=== PATIENT | male | born 1945 | race Caucasian/White ===

== ENCOUNTER → 2016-12-25 | Outpatient (REF) | payer MEDICARE, MEDICAID ==
[2016-12-25 11:32] LABS: ANION GAP 11 MEQ/L (8-16); BLOOD UREA NITROGEN 12 MG/DL (7-18); CALCIUM LEVEL 9.2 MG/DL (8.8-10.2); CARBON DIOXIDE LEVEL 30 MEQ/L (21-32); CHLORIDE LEVEL 104 MEQ/L (98-107); CHOLESTEROL LEVEL 189 MG/DL (<200); GLOMERULAR FILTRATION RATE > 60.0 (>42); GLUCOSE, FASTING 115 MG/DL (83-110); SODIUM LEVEL 145 MEQ/L (136-145); TRIGLYCERIDES LEVEL 112 MG/DL (<150)
== END ==
LOC: M SFHCCLAY 07:32
PROVIDERS: ATTEND Family Medicine
DX: I10 Essential (primary) hypertension (principal); E78.00 Pure hypercholesterolemia, unspecified

== ENCOUNTER → 2018-01-15 | Outpatient (REF) | payer MEDICARE, MEDICAID ==
[2018-01-15 17:29] LABS: ALBUMIN 3.5 GM/DL (3.2-5.2); ALBUMIN/GLOBULIN RATIO 0.97 (1.00-1.93); ALKALINE PHOSPHATASE 65 U/L (45-117); ALT/SGPT 15 U/L (12-78); ANION GAP 7 MEQ/L (8-16); AST/SGOT 12 U/L (7-37); BILIRUBIN,TOTAL 0.5 MG/DL (0.2-1.0); BLOOD UREA NITROGEN 19 MG/DL (7-18); CARBON DIOXIDE LEVEL 32 MEQ/L (21-32); CHLORIDE LEVEL 103 MEQ/L (98-107); CHOLESTEROL LEVEL 178 MG/DL (<200); CHOLESTEROL RISK RATIO 3.869 (<5); CREATININE FOR GFR 1.01 MG/DL (0.70-1.30); GLOMERULAR FILTRATION RATE > 60.0 (>42); GLUCOSE, FASTING 107 MG/DL (70-100); HDL CHOLESTEROL 46 MG/DL (>40); LDL CHOLESTEROL 105.4 MG/DL (<100); NON-HDL-C 132 MG/DL; POTASSIUM SERUM 4.5 MEQ/L (3.5-5.1); SODIUM LEVEL 142 MEQ/L (136-145); TOTAL PROTEIN 7.1 GM/DL (6.4-8.2); TRIGLYCERIDES LEVEL 133 MG/DL (<150)
== END ==
LOC: M SFHCCLAY 10:08
DX: E78.00 Pure hypercholesterolemia, unspecified (principal); I10 Essential (primary) hypertension
CPT/HCPCS: 80053

== ENCOUNTER → 2018-08-19 | Outpatient (REF) | payer MEDICARE, MEDICAID ==
[2018-08-19 11:56] LABS: HEMATOCRIT 44.6 % (42.0-52.0); HEMOGLOBIN 14.3 g/dl (13.5-17.5); MEAN CORPUSCULAR HGB CONC 32.1 g/dl (32.0-36.5); MEAN CORPUSCULAR VOLUME 90.5 fl (80.0-96.0); PLATELET COUNT, AUTOMATED 373 10^3/uL (150-450); RED BLOOD COUNT 4.93 10^6/uL (4.30-6.10); RED CELL DISTRIBUTION WIDTH 13.3 % (11.5-14.5); WHITE BLOOD COUNT 6.9 10^3/uL (4.0-10.0)
[2018-08-19 12:20] LABS: ALBUMIN 3.1 GM/DL (3.2-5.2); ALBUMIN/GLOBULIN RATIO 0.86 (1.00-1.93); ALKALINE PHOSPHATASE 67 U/L (45-117); ALT/SGPT 14 U/L (12-78); ANION GAP 9 MEQ/L (8-16); AST/SGOT 13 U/L (7-37); BILIRUBIN,TOTAL 0.8 MG/DL (0.2-1.0); BLOOD UREA NITROGEN 12 MG/DL (7-18); CALCIUM LEVEL 8.5 MG/DL (8.8-10.2); CARBON DIOXIDE LEVEL 29 MEQ/L (21-32); CHLORIDE LEVEL 105 MEQ/L (98-107); CREATININE FOR GFR 1.08 MG/DL (0.70-1.30); GLOMERULAR FILTRATION RATE > 60.0 (>42); GLUCOSE, FASTING 106 MG/DL (70-100); POTASSIUM SERUM 4.1 MEQ/L (3.5-5.1); SODIUM LEVEL 143 MEQ/L (136-145); TOTAL PROTEIN 6.7 GM/DL (6.4-8.2)
[2018-08-19 12:47] LABS: ESTIMATED AVERAGE GLUCOSE 137 MG/DL (60-110); HEMOGLOBIN A1c 6.4 %
== END ==
LOC: M SFHCCLAY 07:58
DX: I48.1 Persistent atrial fibrillation (principal); I10 Essential (primary) hypertension; G47.33 Obstructive sleep apnea (adult) (pediatric)
CPT/HCPCS: 84443

== ENCOUNTER → 2018-10-14 | Outpatient (REF) | payer MEDICARE, MEDICAID ==
[2018-10-14 17:40] LABS: ANION GAP 6 MEQ/L (8-16); BLOOD UREA NITROGEN 22 MG/DL (7-18); CARBON DIOXIDE LEVEL 34 MEQ/L (21-32); CHLORIDE LEVEL 97 MEQ/L (98-107); CREATININE FOR GFR 1.05 MG/DL (0.70-1.30); GLOMERULAR FILTRATION RATE > 60.0 (>42); GLUCOSE, FASTING 83 MG/DL (70-100); POTASSIUM SERUM 4.5 MEQ/L (3.5-5.1); SODIUM LEVEL 137 MEQ/L (136-145)
== END ==
LOC: M LABDRAWC 16:23
DX: I48.91 Unspecified atrial fibrillation (principal); I10 Essential (primary) hypertension
CPT/HCPCS: 84443

== ENCOUNTER 2018-11-24 06:23 | Day surgery (SDC) | payer MEDICAID, MEDICARE ==
[~2018-11-24] VITALS: Ht 182.9 cm; Wt 122.5 kg
[~2018-11-24 06:23] MED LIST: AMIO200T PO; COMB0.2S OU; ELIQ5TAB PO; LIDOCAINE 1% MDV 20ML VIAL SQ PRN; METO25TA4 PO; OMEP20CA3 PO; POTA10TA16 PO; PRAV20TA2 PO; SYMB16INH INH; TORS20TA2 PO; TYLETAB14 PO; VITA500T3 PO; XALA0.007 OU
[2018-11-24] MEDS ORDERED: LR 1,000 ML IV ONE (07:00)
[2018-11-24] MEDS ORDERED: LIDOCAINE 2% INJ 100 MG/5 ML SDV (FOR ANES.) As Ordered ONE (07:45)
[2018-11-24] MEDS ORDERED: PROPOFOL 200 MG/20 ML VIAL As Ordered ONE (07:45)
[2018-11-24 08:40] VITALS: BP 126/67
--- NOTE | 2018-11-24 12:27 | RO ---
DATE OF PROCEDURE: 11/24/2018 PREOPERATIVE DIAGNOSIS: Persistent atrial fibrillation. POSTOPERATIVE DIAGNOSIS: Persistent atrial fibrillation. PROCEDURE: Cardioversion. SURGEON: Mini Lombardo MD TRANSIT PLANNER: None ANESTHESIA: Bridget Coe CRNA BRIEF HISTORY: Mr. Siddiqui is a 73-year-old man, who has had persistent atrial fibrillation that is poorly tolerated on outpatient basis. He has been anticoagulated for more than 2 months. He also has been started on amiodarone, currently taking 400 mg daily. Because it failed to restore sinus mechanism, we decided to proceed with DC cardioversion. The rationale for the decision was discussed with the patient on outpatient basis and he did sign appropriate consent. Procedure was performed in recovery room. DESCRIPTION OF PROCEDURE: The patient was brought to recovery room in fasting condition. Appropriate monitors were applied. Time-out was taken. Anesthesiology administered sedation. He received approximately 100 mg of IV propofol. When appropriate level of sedation was accomplished, he received initial shock of 200 joules of energy in biphasic fashion with defibrillation patches applied in anterior position. It failed to restore sinus mechanism. Consequently, a second shock was delivered with 300 joules of energy again in biphasic mode, which again failed to restore sinus mechanism. Finally, I proceeded with maximum 360 joules of energy applied in biphasic fashion, which led to spiritism of sinus mechanism. 12-lead ECG performed and confirmed resumption of sinus rhythm. Currently, patient is recovering from sedation. Overall, the procedure was well tolerated and there were no immediate complications. Followup will be arranged in our office next week. I stressed to the patient's family that it is essentially important that he continues taking all his medications, most importantly the Eliquis. JAYY
--- NOTE | 2018-11-25 16:58 | ECGEPIP ---
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
--- NOTE | 2018-11-25 17:05 | ECGEPIP ---
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
== END 2018-11-24 09:05 | disposition home or self-care (01) ==
LOC: M SDC 06:23
PROVIDERS: ATTEND Internal Medicine Cardiovascular Disease
DX: I48.1 Persistent atrial fibrillation (principal); I10 Essential (primary) hypertension; E78.5 Hyperlipidemia, unspecified; G47.33 Obstructive sleep apnea (adult) (pediatric); E66.01 Morbid (severe) obesity due to excess calories; H40.9 Unspecified glaucoma; R07.9 Chest pain, unspecified; E78.00 Pure hypercholesterolemia, unspecified; K21.9 Gastro-esophageal reflux disease without esophagitis; R06.02 Shortness of breath; M12.9 Arthropathy, unspecified; R51 Headache; Z88.0 Allergy status to penicillin; Z88.1 Allergy status to other antibiotic agents; Z79.899 Other long term (current) drug therapy; Z68.42 Body mass index [BMI] 45.0-49.9, adult; Z96.1 Presence of intraocular lens

== ENCOUNTER → 2019-08-16 | Outpatient (REF) | payer MEDICARE, MEDICAID ==
[~2019-08-16] MED LIST changes: +CYAN500T8 PO; -LIDOCAINE 1% MDV 20ML VIAL SQ PRN; -OMEP20CA3 PO; +OMEP20CA4 PO; -VITA500T3 PO
[2019-08-16 12:22] LABS: ALBUMIN 3.4 GM/DL (3.2-5.2); ALT/SGPT 20 U/L (12-78); BILIRUBIN,TOTAL 0.7 MG/DL (0.2-1.0); BLOOD UREA NITROGEN 15 MG/DL (7-18); CALCIUM LEVEL 8.9 MG/DL (8.8-10.2); CARBON DIOXIDE LEVEL 31 MEQ/L (21-32); CHLORIDE LEVEL 103 MEQ/L (98-107); CHOLESTEROL LEVEL 181 MG/DL (<200); CREATININE FOR GFR 1.14 MG/DL (0.70-1.30); GLOMERULAR FILTRATION RATE > 60.0 (>42); GLUCOSE, FASTING 120 MG/DL (70-100); HDL CHOLESTEROL 52 MG/DL (>40); LDL CHOLESTEROL 104 MG/DL (<100); NON-HDL-C 129 MG/DL; POTASSIUM SERUM 4.1 MEQ/L (3.5-5.1); SODIUM LEVEL 139 MEQ/L (136-145); TOTAL PROTEIN 7.5 GM/DL (6.4-8.2); TRIGLYCERIDES LEVEL 123 MG/DL (<150)
[2019-08-16 12:49] LABS: HEMOGLOBIN A1c 6.1 %
[2019-08-16 17:42] LABS: MAU/CREAT RATIO 7.6 MCG/MG (0.0-30.0)
== END ==
LOC: M SFHCCLAY 07:32
PROVIDERS: ATTEND Family Medicine
DX: I10 Essential (primary) hypertension (principal); E78.00 Pure hypercholesterolemia, unspecified; R73.01 Impaired fasting glucose

== ENCOUNTER → 2020-01-10 | Outpatient (CLI) | payer MEDICARE, MEDICAID ==
[~2020-01-10] MED LIST changes: +OMEP1CAP73 PO; -OMEP20CA4 PO
--- NOTE | 2020-01-10 12:15 | REP ---
Left knee five views: There are no comparisons. There is faintly visible chondrocalcinosis suggestive of CPPD. There is no joint space narrowing. No osteophytic formation. No joint effusion. There are no calcifications or foreign bodies. Impression: Chondrocalcinosis suggestive of CPPD. Otherwise, negative left knee. Electronically Signed by Ryne Johnson MD 01/10/2020 12:06 P
== END ==
LOC: M CLY 10:13
PROVIDERS: ATTEND Family Medicine
DX: M11.262 Other chondrocalcinosis, left knee (principal); M17.12 Unilateral primary osteoarthritis, left knee
CPT/HCPCS: 73564; G0463

== ENCOUNTER 2020-04-20 17:21 | Inpatient (IN) | payer MEDICARE, MEDICAID ==
[~2020-04-20] VITALS: Ht 182.9 cm; Wt 166.8 kg
[2020-04-20] MEDS ORDERED: LOSA50TA88 PO (17:42)
[2020-04-20] MEDS ORDERED: ACETAMINOPH W/CODEINE #3 TAB UD PO ONE (18:15)
[2020-04-20 18:33] LABS: VENOUS BASE EXCESS 7.8 (-2.0-2.0); VENOUS HCO3 36.8 MEQ/L (23.0-27.0); VENOUS O2 SATURATION 58.8 % (60.0-80.0); VENOUS PARTIAL PRESSURE CO2 70.8 mmHg (38.0-50.0); VENOUS PARTIAL PRESSURE O2 32.7 mmHg (30.0-50.0); VENOUS PH 7.334 UNITS (7.330-7.430); VENOUS STANDARD HCO3 30.5 MEQ/L
[2020-04-20 18:39] LABS: BASO # 0.1 10^3/uL (0.0-0.2); EOS # 0.3 10^3/uL (0.0-0.5); EOS % 5.1 % (0.0-3.0); HEMATOCRIT 49.5 % (42.0-52.0); HEMOGLOBIN 15.4 g/dl (13.5-17.5); LYMPH % 32.4 % (24.0-44.0); MEAN CORPUSCULAR HEMOGLOBIN 27.8 pg (27.0-33.0); MEAN CORPUSCULAR HGB CONC 31.1 g/dl (32.0-36.5); MEAN CORPUSCULAR VOLUME 89.4 fl (80.0-96.0); MONO # 0.7 10^3/uL (0.0-0.8); MONO % 11.2 % (0.0-5.0); NEUTROPHILS # 3.1 10^3/uL (1.5-8.5); NEUTROPHILS % 50.1 % (36.0-66.0); PLATELET COUNT, AUTOMATED 355 10^3/uL (150-450); RED BLOOD COUNT 5.54 10^6/uL (4.30-6.10); WHITE BLOOD COUNT 6.2 10^3/uL (4.0-10.0)
[2020-04-20 18:51] LABS: INR 1.17; PROTHROMBIN TIME 14.6 SECONDS (11.8-14.0)
[2020-04-20 19:05] LABS: ALBUMIN 3.3 GM/DL (3.2-5.2); ALT/SGPT 16 U/L (12-78); BILIRUBIN,DIRECT 0.2 MG/DL (0.0-0.2); BILIRUBIN,TOTAL 0.4 MG/DL (0.2-1.0); CK-MB VALUE MASS < 1.0 NG/ML (<3.6); CPK CREATINE PHOSPHOKINASE 49 U/L (39-308); MB/CK RELATIVE INDEX 2.04 (< OR =4); NT-PRO BNP 361 PG/ML (<450); THYROID STIMULATING HORMONE < 0.005 uIU/ML (0.358-3.740); TOTAL PROTEIN 7.4 GM/DL (6.4-8.2); TROPONIN I < 0.02 NG/ML (< 0.10)
[2020-04-20] MEDS: METOPROLOL 5 MG/5 ML VIAL IV SCH ×3 (19:11→22:53)
[2020-04-20 19:27] LABS: FREE THYROXINE INDEX 6.4 % (1.4-3.8); T UPTAKE 37 % (33-40); THYROXINE (T4) 17.3 UG/DL (4.5-12.0)
[2020-04-20] MEDS: SYMBICORT 160/4.5MCG INHALER 6GM INH SCH (20:00)
[2020-04-20 20:54] VITALS: O2SAT 86
[2020-04-20] MEDS ORDERED: FUROSEMIDE 40MG/4ML VIAL (J1940) IV ONE (21:45)
--- NOTE | 2020-04-20 22:30 | HPEPDOC ---
[facility] Medical History & Physical Date of Admission Apr 20, 2020 Date of Service: Apr 20, 2020 Attending Physician: JEROME STORY MD History and Physical CHIEF COMPLAINT: Shortness of breath HISTORY OF PRESENT ILLNESS: 75-year-old male with past medical history of atrial fibrillation on Eliquis, COPD, hypertension and chronic back pain presents from home with worsening shortness of breath for the past 2 days. He denies any precipitating events, denies symptoms at rest, reports dyspnea on exertion, sudden onset and progressively worsening. In the ED, he is found to be in atrial fibrillation with rapid ventricular rate, congestive heart failure and hyperthyroidism. He denies any chest pain, nausea, vomiting, diarrhea or constipation. 10 point review of system is negative except for above PAST MEDICAL HISTORY: 1. COPD. 2. Atrial fibrillation. 3. Hypertension. 4. Chronic back pain PAST SURGICAL HISTORY: 1. Cholecystectomy. SOCIAL HISTORY: Previous heavy smoker. Denies alcohol use. Denies drug use FAMILY HISTORY: Positive for heart disease ALLERGIES: Please see below. HOME MEDICATIONS: Please see below. PHYSICAL EXAMINATION: VITAL SIGNS: Please see below. GENERAL: No distress HEENT: Normocephalic, atraumatic, moist mucous membranes NECK: Supple CARDIOVASCULAR EXAMINATION: S1, S2, irregularly irregular, tachycardic RESPIRATORY EXAMINATION: Scattered rhonchi, poor air movement, diminished in the bases, no wheezing ABDOMINAL EXAMINATION: Soft, nontender, mildly distended, positive bowel sounds EXTREMITIES: Bilateral lower extremity pitting edema SKIN: No rash NEUROLOGICAL EXAMINATION: Alert and oriented 3, no focal deficits PSYCHIATRIC EXAMINATION: Calm and cooperative LABORATORY DATA: See below. IMAGING: Chest x-ray showing pulmonary vascular congestion MICROBIOLOGY: Please see below. ASSESSMENT: 75-year-old male with past medical history of atrial fibrillation, COPD, hypertension and chronic back pain, admitted for congestive heart failure secondary to A. fib with RVR, which has likely been precipitated by hyperthyroidism. PLAN: 1. A. fib with RVR. Likely precipitated by hyperthyroidism, metoprolol for rate control, continue Eliquis for anticoagulation, TTE ordered. 2. Congestive heart failure. Secondary to above, Lasix 40 mg IV 1 followed by home torsemide 20 mg daily, monitor I's and O's, weigh daily. 3. Hyperthyroidism. Undiagnosed, thyroid-stimulating immunoglobulin ordered, consider radioactive iodine uptake in the morning, currently not in thyroid storm. 4. COPD Stable, continue home regimen 5. Hypertension. Continue home metoprolol and losartan DVT prophylaxis: On Eliquis GI prophylaxis: Not needed Vital Signs Vital Signs Date Time Temp Pulse Resp B/P (MAP) Pulse Ox O2 Delivery O2 Flow Rate FiO2 04/20/20 20:54 86 Room Air 04/20/20 19:51 91 20 04/20/20 19:45 94/50 (65) 04/20/20 17:35 98.8 Laboratory Data Labs 24H Laboratory Tests 2 04/20/20 18:17: Immature Granulocyte % (Auto) 0.2, Neutrophils (%) (Auto) 50.1, Lymphocytes (%) (Auto) 32.4, Monocytes (%) (Auto) 11.2H, Eosinophils (%) (Auto) 5.1H, Basophils (%) (Auto) 1.0, Neutrophils # (Auto) 3.1, Lymphocytes # (Auto) 2.0, Monocytes # (Auto) 0.7, Eosinophils # (Auto) 0.3, Basophils # (Auto) 0.1, Nucleated Red Blood Cells % (auto) 0.0, Prothrombin Time 14.6H, Prothromb Time International Ratio 1.17, Blood Gas Bicarbonate Standard 30.5, Venous Blood pH 7.334, Venous Blood Partial Pressure CO2 70.8H, Venous Blood Partial Pressure O2 32.7, Venous Blood Total Carbon Dioxide 39.0H, Venous Blood HCO3 36.8H, Venous Blood Oxygen Saturation 58.8L, Venous Blood Base Excess 7.8H, Total Bilirubin 0.4, Direct Bilirubin 0.2, Aspartate Amino Transf (AST/SGOT) 13, Alanine Aminotransferase (ALT/SGPT) 16, Alkaline Phosphatase 73, Total Creatine Kinase 49, Creatine Kinase MB < 1.0, Creatine Kinase MB Relative Index 2.04, Troponin I < 0.02, TM-Fag-E-Type Natriuretic Peptide 361, Total Protein 7.4, Albumin 3.3, Albumin/Globulin Ratio 0.8, Thyroid Stimulating Hormone (TSH) < 0.005L, Free Thyroxine Index 6.4H, Thyroxine (T4) 17.3H, Triiodothyronine (T3) Uptake 37 04/20/20 18:18: Lactic Acid Level 1.6 04/20/20 18:22: POC Troponin I (Misc) 0.00 04/20/20 18:57: POC Glucose (Misc Panel) 117H, POC Sodium (Misc Panel) 141, POC Potassium (Misc Panel) 4.2, POC Chloride (Misc Panel) 95L, POC Total CO2 (Misc Panel) 35.0H, POC Blood Urea Nitrogen (Misc Panel 19, POC Ionized Calcium (Misc Panel) 4.4L, POC Creatinine (Misc Panel) 1.0, POC Hematocrit (Misc Panel) 55.0H CBC/BMP Laboratory Tests 04/20/20 18:17 Microbiology Microbiology 04/20/20 Blood Culture, Received Pending Home Medications Scheduled Apixaban (Eliquis) 5 Mg Tab, 5 MG PO BID Brimonidine Tartrate/Timolol (Combigan 0.2%-0.5% Eye Drops) 1 Eli Eli, 1 DROP OU BID Budesonide/Formoterol (Symbicort 160-4.5 Mcg Inhaler) 60 Puff/Inhaler Aers, 2 PUFF INH BID Latanoprost (Xalatan) 0.005 % Eli, 1 DROP OU QHS Losartan Potassium (Losartan Potassium) 50 Mg Tablet, 50 MG PO DAILY Metoprolol Tartrate (Metoprolol Tartrate) 25 Mg Tab, 25 MG PO DAILY Omeprazole (Omeprazole) 20 Mg Cap, 20 MG PO DAILY Potassium Chloride (Potassium Chloride) 10 Meq Tab, 10 MEQ PO DAILY Pravastatin Sodium (Pravastatin Sodium) 20 Mg Tab, 20 MG PO DAILY Torsemide (Torsemide) 20 Mg Tab, 20 MG PO DAILY Scheduled PRN Acetaminophen with Codeine (Tylenol with Codeine #3 Tablet) 1 Tab Tab, 1 TAB PO PRN PRN for PAIN Allergies Coded Allergies: Penicillins (Verified Allergy, Unknown, 04/20/20) RASH oxytetracycline (Verified Allergy, Unknown, 04/20/20) RASH A-FIB/CHADSVASC A-FIB History Current/History of A-Fib/PAF?: Yes Current PO Anticoag Therapy: Yes JEROME STORY MD Apr 20, 2020 22:30
[2020-04-20] MEDS: APIXABAN 5 MG TAB (ELIQUIS) PO SCH (23:42)
[2020-04-20] MEDS: METOPROLOL TART 25 MG TABLET PO SCH (23:43)
[2020-04-20] MEDS: LATANOPROST 0.005% OPHTH SOLN 2.5 ML OU SCH (23:43)
[2020-04-21] VITALS: BP 136/97
[2020-04-21 06:21] LABS: HEMATOCRIT 46.4 % (42.0-52.0); HEMOGLOBIN 14.6 g/dl (13.5-17.5); MEAN CORPUSCULAR HGB CONC 31.5 g/dl (32.0-36.5); MEAN CORPUSCULAR VOLUME 89.1 fl (80.0-96.0); PLATELET COUNT, AUTOMATED 336 10^3/uL (150-450); RED BLOOD COUNT 5.21 10^6/uL (4.30-6.10); WHITE BLOOD COUNT 8.2 10^3/uL (4.0-10.0)
[2020-04-21 06:51] LABS: ALBUMIN 3.1 GM/DL (3.2-5.2); ALT/SGPT 14 U/L (12-78); BLOOD UREA NITROGEN 16 MG/DL (7-18); CALCIUM LEVEL 8.8 MG/DL (8.8-10.2); CARBON DIOXIDE LEVEL 35 MEQ/L (21-32); CHLORIDE LEVEL 100 MEQ/L (98-107); CREATININE FOR GFR 0.98 MG/DL (0.70-1.30); GLOMERULAR FILTRATION RATE > 60.0 (>42); GLUCOSE, FASTING 129 MG/DL (70-100); MAGNESIUM LEVEL 1.8 MG/DL (1.8-2.4); POTASSIUM SERUM 4.3 MEQ/L (3.5-5.1); SODIUM LEVEL 138 MEQ/L (136-145); TOTAL PROTEIN 6.8 GM/DL (6.4-8.2)
[2020-04-21 08:00] VITALS: BP 165/96
[2020-04-21] MEDS: SYMBICORT 160/4.5MCG INHALER 6GM INH SCH ×2 (08:16→20:00)
--- NOTE | 2020-04-21 08:20 | REP ---
PORTABLE CHEST X-RAY: SINGLE VIEW. HISTORY: Dyspnea and cough. Comparison chest x-ray: April 03, 2015 FINDINGS: Monitoring electrodes overlie the chest. There is some processing artifact over the diaphragms and heart. Heart size is borderline. The lungs are symmetrically somewhat under aerated but free of infiltrate. Pleural angles are sharp. Pulmonary vasculature is not increased. IMPRESSION: Low level of inspiration. Otherwise no acute disease. No infiltrate seen. Electronically Signed by Sivakumar Riley MD 04/21/2020 08:23 A
[2020-04-21] MEDS: TORSEMIDE 20 MG TAB PO SCH (08:41)
[2020-04-21] MEDS: PRAVASTATIN 20 MG TAB PO SCH (08:41)
[2020-04-21] MEDS: LOSARTAN 50MG TABLET PO SCH (08:41)
[2020-04-21] MEDS: METOPROLOL TART 25 MG TABLET PO SCH ×3 (08:42→17:31)
[2020-04-21] MEDS: OMEPRAZOLE 20 MG CAP PO SCH (08:42)
[2020-04-21] MEDS: APIXABAN 5 MG TAB (ELIQUIS) PO SCH ×2 (08:42→20:30)
[2020-04-21] MEDS: POTASSIUM CHLORIDE 10 MEQ SR TABLET PO SCH (08:42)
[2020-04-21 08:56] LABS: FREE T3 3.8 PG/ML (2.2-4.0)
[2020-04-21 10:21] VITALS: BP 133/79
--- NOTE | 2020-04-21 12:13 | IPNPDOC ---
Text Note Date of Service The patient was seen on 04/21/20. NOTE SUBJECTIVE: Does not offer any complaints this morning. No change yet. Says has not walked yet will be able to tell is any better or not after he walks. He is having exertional SOB. Had 1150 negative overnight. PHYSICAL EXAMINATION: VITAL SIGNS: Please see below. GENERAL: No distress HEENT: Normocephalic, atraumatic, moist mucous membranes NECK: Supple CARDIOVASCULAR EXAMINATION: S1, S2, irregularly irregular, tachycardic RESPIRATORY EXAMINATION: Scattered rhonchi, poor air movement, diminished in the bases, no wheezing ABDOMINAL EXAMINATION: Soft, nontender, mildly distended, positive bowel sounds EXTREMITIES: Bilateral lower extremity pitting edema SKIN: No rash NEUROLOGICAL EXAMINATION: Alert and oriented 3, no focal deficits PSYCHIATRIC EXAMINATION: Calm and cooperative Labs and radiology reviewed. Assessment and plan: 75-year-old male with past medical history of atrial fibrillation on Eliquis, h/o Cardioversion, COPD, hypertension and chronic back pain, glaucoma, retinal tear and hemorrhage, presents from home with worsening shortness of breath for the past 2 days. He denies any precipitating events, denies symptoms at rest, reports dyspnea on exertion, sudden onset and progressively worsening. In the ED, he is found to be in atrial fibrillation with rapid ventricular rate, congestive heart failure and hyperthyroidism. Patient admitted for congestive heart failure secondary to A. fib with RVR, which has likely been precipitated by hyperthyroidism. A. fib with RVR. Likely precipitated by hyperthyroidism, metoprolol for rate control, continue Eliquis for anticoagulation, TTE ordered. Congestive heart failure. Secondary to above, Lasix 40 mg IV 1 followed by home torsemide 20 mg daily, monitor I's and O's, weigh daily. Echo ordered. Hyperthyroidism. Free T3 ordered. Undiagnosed, thyroid-stimulating immunoglobulin ordered Morbid obesity and LIZETTE uses CPAP at home. COPD Stable, continue home regimen symbicort Hypertension. Continue home metoprolol and losartan Hyperlipidemia statin Glaucoma continue eye drops. DVT prophylaxis: On Eliquis VS,Fishbone, I+O VS, Fishbone, I+O Laboratory Tests 04/20/20 18:17 04/21/20 05:35 Vital Signs Date Time Temp Pulse Resp B/P (MAP) Pulse Ox O2 Delivery O2 Flow Rate FiO2 04/21/20 00:00 97.1 92 20 136/97 (110) 96 Nasal Cannula 2.0 I&O- Last 24 Hours up to 6 AM 04/21/20 06:00 Output Total 950 ml Balance -950 ml SUE MEJIAS MD Apr 21, 2020 07:52
[2020-04-21 14:00] VITALS: BP 131/71
[2020-04-21] MEDS: LATANOPROST 0.005% OPHTH SOLN 2.5 ML OU SCH (20:30)
[2020-04-21] MEDS: ACETAMINOPH W/CODEINE #3 TAB UD PO PRN (20:35)
[2020-04-21 22:00] VITALS: BP 122/55
[2020-04-22] MEDS: METOPROLOL TART 25 MG TABLET PO SCH ×4 (01:00→18:12)
[2020-04-22 06:00] VITALS: BP 107/69
[2020-04-22] MEDS: SYMBICORT 160/4.5MCG INHALER 6GM INH SCH ×2 (07:47→18:09)
[2020-04-22] MEDS: APIXABAN 5 MG TAB (ELIQUIS) PO SCH ×2 (08:46→20:14)
[2020-04-22] MEDS: PRAVASTATIN 20 MG TAB PO SCH (08:46)
[2020-04-22] MEDS: POTASSIUM CHLORIDE 10 MEQ SR TABLET PO SCH (08:46)
[2020-04-22] MEDS: OMEPRAZOLE 20 MG CAP PO SCH (08:46)
[2020-04-22] MEDS: TORSEMIDE 20 MG TAB PO SCH (08:47)
[2020-04-22] MEDS: LOSARTAN 50MG TABLET PO SCH (08:50)
[2020-04-22] MEDS: ACETAMINOPH W/CODEINE #3 TAB UD PO PRN ×2 (09:01→20:15)
[2020-04-22 14:00] VITALS: BP 126/71
--- NOTE | 2020-04-22 15:30 | IPNPDOC ---
Text Note Date of Service The patient was seen on 04/22/20. NOTE Subjective: Patient stated that he feels better today, he denied any palpitations. Denies fever, chills, nausea, vomiting, diarrhea or dysuria Objective: VITAL SIGNS: Please see below. GENERAL: Morbidly obese male HEENT: NCAT, anicteric sclera, ANTHONY NECK: supple, no JVD CARDIOVASCULAR EXAMINATION: Irregularly irregular RESPIRATORY EXAMINATION: CTA b/l, no wheezes/rales/rhonchi ABDOMINAL EXAMINATION: positive bowel sounds x 4, NT, diabetes EXTREMITIES: no cyanosis, clubbing, edema SKIN: warm, no rashes. NEUROLOGICAL EXAMINATION: AAO x 3, no motor/sensory deficits PSYCHIATRIC EXAMINATION: calm, normal affect Patient is 75 years old male with past history of atrial fibrillation on Eliquis, history of cardioversion, COPD, hypertension presented hospital with increased shortness of breath. During hospital stay patient was found to have atrial fibrillation with rapid ventricular rate. Also patient was found to have hyperthyroidism Atrial fibrillation Rate is under control Continue metoprolol and Eliquis There is possibility that patient developed rapid ventricular rate secondary to hyperthyroidism Congestive heart failure Echo ordered Continue torsemide I's and O's Cardiac Hyperthyroidism Low TSH, high T4 We'll check anti-thyroperoxidase ab, TSI Patient will need RAUI scan in the outpatient settings COPD Stable, continue home regimen Hypertension. Continue home metoprolol and losartan DVT prophylaxis: On Eliquis GI prophylaxis: Not needed VS,Fishbone, I+O VS, Fishbone, I+O Vital Signs Date Time Temp Pulse Resp B/P (MAP) Pulse Ox O2 Delivery O2 Flow Rate FiO2 04/22/20 14:00 98.6 100 19 126/71 (89) 89 Room Air 04/22/20 09:00 2.0 I&O- Last 24 Hours up to 6 AM 04/22/20 06:00 Intake Total 470 ml Output Total 1325 ml Balance -855 ml PHILIP NEWTON DO Apr 22, 2020 15:30
[2020-04-22 16:46] LABS: NT-PRO BNP 316 PG/ML (<450)
[2020-04-22] MEDS: LATANOPROST 0.005% OPHTH SOLN 2.5 ML OU SCH (20:14)
[2020-04-22 22:00] VITALS: BP 131/73
[2020-04-23] MEDS: METOPROLOL TART 25 MG TABLET PO SCH ×2 (00:09→06:23)
[2020-04-23 05:54] LABS: HEMATOCRIT 45.3 % (42.0-52.0); HEMOGLOBIN 14.1 g/dl (13.5-17.5); MEAN CORPUSCULAR HEMOGLOBIN 27.5 pg (27.0-33.0); MEAN CORPUSCULAR HGB CONC 31.1 g/dl (32.0-36.5); MEAN CORPUSCULAR VOLUME 88.5 fl (80.0-96.0); PLATELET COUNT, AUTOMATED 299 10^3/uL (150-450); RED BLOOD COUNT 5.12 10^6/uL (4.30-6.10); WHITE BLOOD COUNT 6.2 10^3/uL (4.0-10.0)
[2020-04-23 06:00] VITALS: BP 125/69
[2020-04-23 06:19] LABS: BLOOD UREA NITROGEN 22 MG/DL (7-18); CALCIUM LEVEL 8.8 MG/DL (8.8-10.2); CARBON DIOXIDE LEVEL 36 MEQ/L (21-32); CHLORIDE LEVEL 98 MEQ/L (98-107); CREATININE FOR GFR 1.06 MG/DL (0.70-1.30); GLOMERULAR FILTRATION RATE > 60.0 (>42); GLUCOSE, FASTING 116 MG/DL (70-100); MAGNESIUM LEVEL 1.9 MG/DL (1.8-2.4); POTASSIUM SERUM 3.9 MEQ/L (3.5-5.1); SODIUM LEVEL 140 MEQ/L (136-145)
[2020-04-23] MEDS: SYMBICORT 160/4.5MCG INHALER 6GM INH SCH ×2 (07:32→20:00)
[2020-04-23] MEDS: OMEPRAZOLE 20 MG CAP PO SCH (08:58)
[2020-04-23] MEDS: POTASSIUM CHLORIDE 10 MEQ SR TABLET PO SCH (08:58)
[2020-04-23] MEDS: APIXABAN 5 MG TAB (ELIQUIS) PO SCH ×2 (08:58→20:49)
[2020-04-23] MEDS: TORSEMIDE 20 MG TAB PO SCH (08:58)
[2020-04-23] MEDS: PRAVASTATIN 20 MG TAB PO SCH (08:58)
[2020-04-23] MEDS: LOSARTAN 50MG TABLET PO SCH (08:59)
[2020-04-23 09:46] LABS: THYROGLOBULIN ANTIBODY 275.4 U/ML (<60.0); THYROID PEROXIDASE ANTIBODY 41.1 U/ML (<60.0)
[2020-04-23] MEDS ORDERED: PROPRANOLOL 80 MG LA CAP PO SCH (10:00)
--- NOTE | 2020-04-23 13:51 | IPNPDOC ---
Text Note Date of Service The patient was seen on 04/23/20. NOTE SUBJECTIVE: Does not offer any complaints this morning. Says breathing is bet ter. 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 He has been able to work with PT. His blood pressure is on the lower side today. Echo not yet done. PHYSICAL EXAMINATION: VITAL SIGNS: Please see below. GENERAL: No distress HEENT: Normocephalic, atraumatic, moist mucous membranes NECK: Supple CARDIOVASCULAR EXAMINATION: S1, S2, irregularly irregular, tachycardic RESPIRATORY EXAMINATION: Scattered rhonchi, poor air movement, diminished in the bases, no wheezing ABDOMINAL EXAMINATION: Soft, nontender, mildly distended, positive bowel sounds EXTREMITIES: Bilateral lower extremity pitting edema SKIN: No rash NEUROLOGICAL EXAMINATION: Alert and oriented 3, no focal deficits PSYCHIATRIC EXAMINATION: Calm and cooperative Labs and radiology reviewed. Assessment and plan: 75-year-old male with past medical history of atrial fibrillation on Eliquis, h/o Cardioversion, COPD, hypertension and chronic back pain, glaucoma, retinal tear and hemorrhage, presents from home with worsening shortness of breath for the past 2 days. He denies any precipitating events, denies symptoms at rest, reports dyspnea on exertion, sudden onset and progressively worsening. In the ED, he is found to be in atrial fibrillation with rapid ventricular rate, congestive heart failure and hyperthyroidism. Patient admitted for congestive heart failure secondary to A. fib with RVR, which has likely been precipitated by hyperthyroidism. A. fib with RVR. Likely precipitated by hyperthyroidism, continue Eliquis for anticoagulation, TTE ordered. discussed with Dr Lombardo will change metoprolol to long acting propranolol T4 Hyperthyroidism. Free T3 not elevated. Thyroglobulin antibody is elevated, Thyroid peroxidase antibody in normal. will refer to Dr Ros Cody. thyroid-stimulating immunoglobulin ordered Congestive heart failure. Secondary to above, Lasix 40 mg IV 1 followed by home torsemide 20 mg daily, monitor I's and O's, weigh daily. Echo ordered. Morbid obesity and LIZETTE uses CPAP at home. COPD Stable, continue home regimen symbicort Hypertension. Losartan dose reduced as starting on betablocker propranolol. Hyperlipidemia statin Glaucoma continue eye drops. DVT prophylaxis: On Eliquis VS,Fishbone, I+O VS, Fishbone, I+O Laboratory Tests 04/23/20 05:30 Vital Signs Date Time Temp Pulse Resp B/P (MAP) Pulse Ox O2 Delivery O2 Flow Rate FiO2 04/23/20 10:00 85 95/65 04/23/20 06:00 98.1 18 92 Room Air 04/22/20 21:00 2.0 I&O- Last 24 Hours up to 6 AM 04/23/20 06:00 Intake Total 1675 ml Output Total 2500 ml Balance -825 ml SUE MEJIAS MD Apr 23, 2020 13:50
[2020-04-23 14:00] VITALS: BP 151/91
[2020-04-23] MEDS ORDERED: PROP60CA PO (14:43)
[2020-04-23] MEDS ORDERED: METH10TA PO (14:43)
[2020-04-23] MEDS ORDERED: LOSA50TA88 PO (14:43)
--- NOTE | 2020-04-23 15:08 | ECGEPIP ---
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
[2020-04-23] MEDS: PROPRANOLOL 60 MG LA CAP PO SCH (15:20)
[2020-04-23] MEDS: LATANOPROST 0.005% OPHTH SOLN 2.5 ML OU SCH (20:49)
[2020-04-23] MEDS: ACETAMINOPH W/CODEINE #3 TAB UD PO PRN (20:49)
[2020-04-23 22:00] VITALS: BP 130/82
[2020-04-24 05:50] LABS: HEMATOCRIT 44.3 % (42.0-52.0); HEMOGLOBIN 14.2 g/dl (13.5-17.5); MEAN CORPUSCULAR HEMOGLOBIN 28.2 pg (27.0-33.0); MEAN CORPUSCULAR HGB CONC 32.1 g/dl (32.0-36.5); MEAN CORPUSCULAR VOLUME 88.1 fl (80.0-96.0); PLATELET COUNT, AUTOMATED 298 10^3/uL (150-450); RED BLOOD COUNT 5.03 10^6/uL (4.30-6.10)
[2020-04-24 06:00] VITALS: BP 126/79
[2020-04-24 06:18] LABS: BLOOD UREA NITROGEN 25 MG/DL (7-18); CALCIUM LEVEL 8.7 MG/DL (8.8-10.2); CARBON DIOXIDE LEVEL 35 MEQ/L (21-32); CHLORIDE LEVEL 98 MEQ/L (98-107); CREATININE FOR GFR 1.15 MG/DL (0.70-1.30); GLOMERULAR FILTRATION RATE > 60.0 (>42); GLUCOSE, FASTING 165 MG/DL (70-100); MAGNESIUM LEVEL 1.9 MG/DL (1.8-2.4); POTASSIUM SERUM 3.7 MEQ/L (3.5-5.1); SODIUM LEVEL 136 MEQ/L (136-145)
[2020-04-24] MEDS: SYMBICORT 160/4.5MCG INHALER 6GM INH SCH (07:23)
[2020-04-24] MEDS: LOSARTAN 50MG TABLET PO SCH ×2 (09:00→09:06)
[2020-04-24] MEDS: APIXABAN 5 MG TAB (ELIQUIS) PO SCH (09:03)
[2020-04-24 09:05] VITALS: BP 117/69
[2020-04-24] MEDS: POTASSIUM CHLORIDE 10 MEQ SR TABLET PO SCH (09:05)
[2020-04-24] MEDS: PRAVASTATIN 20 MG TAB PO SCH (09:05)
[2020-04-24] MEDS: TORSEMIDE 20 MG TAB PO SCH (09:05)
[2020-04-24] MEDS: PROPRANOLOL 60 MG LA CAP PO SCH (09:05)
[2020-04-24] MEDS: OMEPRAZOLE 20 MG CAP PO SCH (09:06)
--- NOTE | 2020-04-24 10:27 | ECHO ---
DATE OF PROCEDURE: 04/23/2020 REFERRING PHYSICIAN: Dr. Ryan. INDICATION: Congestive heart failure. HEIGHT: 183 cm WEIGHT: 168 kg. DIMENSIONS: IVS - 1.3 LV - 5.3 LVPW - 1.3 LA - 4.3 Aorta - 3.5. FINDINGS: The study is of poor technical quality corresponding to patient's body habitus. Underlying rhythm is atrial fibrillation with mild tachycardia and a heart rate typically between 100 and 110 beats per minute. Left ventricle is normal size. Mild left ventricular hypertrophy is noted. Overall probably normal LV systolic function based on rather limited views. Right ventricle is dilated and hypokinetic. There is biatrial enlargement, right atrium much bigger than left. Limited views of aortic mitral and tricuspid valves appear normal. Pulmonic valve was not visualized. Small amount of pericardial fat pad is noted. Inferior vena cava was not seen. Aortic root is normal. Aortic arch and abdominal aorta were not visualized. Doppler interrogation reveals no significant aortic and mitral valvular disease. There is mild tricuspid insufficiency. Calculated pulmonary artery pressure is around 30 mmHg but this is based on poor quality of TR jet and should not be considered overly reliable. Evaluation of diastolic function is inconclusive due to underlying atrial fibrillation. CONCLUSION: 1. Study is of poor technical quality corresponding to patient's body habitus. The patient is in atrial fibrillation. 2. Normal LV size with mild LVH and probably normal LV systolic function. 3. Dilated hypokinetic right ventricle. 4. No hemodynamically significant valvular disease. 5. Unable to estimate central venous pressure. 6. Suggestive of borderline pulmonary hypertension. COMMENT: Subacute bacterial endocarditis (SBE) prophylaxis is not recommended.
--- NOTE | 2020-04-24 10:58 | DS.PDOC ---
Discharge Summary General Date of Admission Apr 20, 2020 at 21:43 Date of Discharge 04/24/2020 Attending Physician: FELICITY HERNANDEZ MD Discharge Summary PROCEDURES PERFORMED DURING STAY: None ADMITTING DIAGNOSES: 1. Afib with RVR DISCHARGE DIAGNOSES: 1. Afib with RVR 2. Hyperthyroidism 3. Hypertension. 4. Chronic back pain COMPLICATIONS/CHIEF COMPLAINT: Atrial Fibrillation With Rvr. HISTORY OF PRESENT ILLNESS: 75-year-old M with past medical history of atrial fibrillation on Eliquis, COPD, hypertension and chronic back pain presents from home with worsening shortness of breath for 2 days and found to be in atrial fibrillation with rapid ventricular rate, congestive heart failure and hyperthyroidism. HOSPITAL COURSE: While inpatient, he was found to ahve hyperthyroidism and Dr. Torres reported having spoken with Dr. Cody (endocrinology) who recommended 30mg QD of methimazole and follow up outpatient with her. Meanwhile, Dr. Lombardo recommended propanolol 60 QD and he will follow up outpatient as well. DISCHARGE MEDICATIONS: Please see below. ALLERGIES: Please see below. PHYSICAL EXAMINATION ON DISCHARGE: VITAL SIGNS: Please see below. GENERAL: No distress HEENT: Normocephalic, atraumatic, moist mucous membranes NECK: Supple CARDIOVASCULAR EXAMINATION: S1, S2, irregularly irregular, normal rate, no noted murmurs, rubs or gallops RESPIRATORY EXAMINATION: Scattered rhonchi, poor air movement, diminished in the bases, no wheezing ABDOMINAL EXAMINATION: Soft, nontender, mildly distended, positive bowel sounds EXTREMITIES: Bilateral lower extremity pitting edema SKIN: No rash NEUROLOGICAL EXAMINATION: Alert and oriented 3 LABORATORY DATA: Please see below. IMAGING: CXR on admission: Low level of inspiration. Otherwise no acute disease. No infiltrate seen. PROGNOSIS: Good ACTIVITY: As tolerated DIET: Regular DISCHARGE PLAN: home with endocrinology follow up to see Dr. Cody DISPOSITION: Home DISCHARGE INSTRUCTIONS: 1. Daily methimazole and propanolol with endocrinology and cardiology follow up. ITEMS TO FOLLOWUP ON ON OUTPATIENT: 1. Hyperthyroidism and Afib with RVR DISCHARGE CONDITION: Stable TIME SPENT ON DISCHARGE: 32 minutes. Vital Signs/I&Os Vital Signs Date Time Temp Pulse Resp B/P (MAP) Pulse Ox O2 Delivery O2 Flow Rate FiO2 04/24/20 06:00 98.0 85 20 126/79 (95) 95 04/23/20 21:00 2.0 04/23/20 14:00 Room Air I&O- Last 24 Hours up to 6 AM 04/24/20 06:00 Intake Total 1680 ml Output Total 1700 ml Balance -20 ml Laboratory Data Labs 24H Laboratory Tests 2 04/24/20 05:31: Nucleated Red Blood Cells % (auto) 0.0, Anion Gap 3L, Glomerular Filtration Rate > 60.0, Calcium Level 8.7L, Magnesium Level 1.9 CBC/BMP Laboratory Tests 04/24/20 05:31 Microbiology Microbiology 04/20/20 Blood Culture - Preliminary, Resulted No Growth after 72 hours. All specime... 04/20/20 Blood Culture - Preliminary, Resulted No Growth after 72 hours. All specime... Discharge Medications Scheduled Apixaban (Eliquis) 5 Mg Tab, 5 MG PO BID, (Reported) Brimonidine Tartrate/Timolol (Combigan 0.2%-0.5% Eye Drops) 1 Eli Eli, 1 DROP OU BID, (Reported) Budesonide/Formoterol (Symbicort 160-4.5 Mcg Inhaler) 60 Puff/Inhaler Aers, 2 PUFF INH BID, (Reported) Latanoprost (Xalatan) 0.005 % Eli, 1 DROP OU QHS, (Reported) Losartan Potassium (Losartan Potassium) 50 Mg Tablet, 25 MG PO DAILY Take 1/2 of the 50 mg tab Methimazole (Methimazole) 10 Mg Tablet, 30 MG PO DAILY 3 tabs daily in the morning Omeprazole (Omeprazole) 20 Mg Cap, 20 MG PO DAILY, (Reported) Potassium Chloride (Potassium Chloride) 10 Meq Tab, 10 MEQ PO DAILY, (Reported) Pravastatin Sodium (Pravastatin Sodium) 20 Mg Tab, 20 MG PO DAILY, (Reported) Propranolol HCl (Propranolol HCl ER) 60 Mg Cap.sa.24h, 1 CAP PO DAILY Torsemide (Torsemide) 20 Mg Tab, 20 MG PO DAILY, (Reported) Scheduled PRN Acetaminophen with Codeine (Tylenol with Codeine #3 Tablet) 1 Tab Tab, 1 TAB PO PRN PRN for PAIN, (Reported) Allergies Coded Allergies: Penicillins (Verified Allergy, Unknown, 04/20/20) RASH oxytetracycline (Verified Allergy, Unknown, 04/20/20) RASH FELICITY HERNANDEZ MD Apr 24, 2020 09:13
== END 2020-04-24 13:00 | disposition home or self-care (01) | DRG 644 ==
LOC: M ED 17:21 → M ED INP 21:43 → ENRESERV 22:21 → M PCU 23:33 → M MSPAV 04-21 10:23
PROVIDERS: ADMIT Internal Medicine; ATTEND Internal Medicine
DX: E05.90 Thyrotoxicosis, unspecified without thyrotoxic crisis or storm (principal); Z68.42 Body mass index [BMI] 45.0-49.9, adult; I48.91 Unspecified atrial fibrillation; E66.01 Morbid (severe) obesity due to excess calories; I11.0 Hypertensive heart disease with heart failure; M54.5 Low back pain; J44.9 Chronic obstructive pulmonary disease, unspecified; I50.9 Heart failure, unspecified; Z79.899 Other long term (current) drug therapy; Z88.0 Allergy status to penicillin; Z87.891 Personal history of nicotine dependence; G47.33 Obstructive sleep apnea (adult) (pediatric); E78.5 Hyperlipidemia, unspecified; H40.9 Unspecified glaucoma

== ENCOUNTER 2020-05-16 08:58 | Observation (INO) | payer MEDICARE, MEDICAID ==
[~2020-05-16] VITALS: Ht 182.9 cm; Wt 165.0 kg
[~2020-05-16 08:58] MED LIST changes: +LOSA50TA88 PO; +METH10TA PO; +PROP60CA PO
[2020-05-16] MEDS ORDERED: PROPRANOLOL 80 MG LA CAP PO SCH (09:00)
[2020-05-16 09:41] LABS: BASO # 0.1 10^3/uL (0.0-0.2); EOS # 0.3 10^3/uL (0.0-0.5); EOS % 4.8 % (0.0-3.0); HEMATOCRIT 47.3 % (42.0-52.0); HEMOGLOBIN 15.2 g/dl (13.5-17.5); LYMPH # 2.1 10^3/uL (1.5-5.0); LYMPH % 30.1 % (24.0-44.0); MEAN CORPUSCULAR HEMOGLOBIN 28.2 pg (27.0-33.0); MEAN CORPUSCULAR HGB CONC 32.1 g/dl (32.0-36.5); MEAN CORPUSCULAR VOLUME 87.8 fl (80.0-96.0); MONO # 0.7 10^3/uL (0.0-0.8); MONO % 9.5 % (0.0-5.0); NEUTROPHILS # 3.8 10^3/uL (1.5-8.5); NEUTROPHILS % 54.3 % (36.0-66.0); PLATELET COUNT, AUTOMATED 466 10^3/uL (150-450); RED BLOOD COUNT 5.39 10^6/uL (4.30-6.10)
[2020-05-16 09:51] LABS: INR 1.33; PROTHROMBIN TIME 16.2 SECONDS (11.8-14.0)
[2020-05-16 10:10] LABS: ALBUMIN 3.2 GM/DL (3.2-5.2); ALT/SGPT 13 U/L (12-78); BILIRUBIN,DIRECT 0.1 MG/DL (0.0-0.2); BILIRUBIN,TOTAL 0.4 MG/DL (0.2-1.0); BLOOD UREA NITROGEN 17 MG/DL (7-18); CARBON DIOXIDE LEVEL 31 MEQ/L (21-32); CHLORIDE LEVEL 103 MEQ/L (98-107); CK-MB VALUE MASS < 1.0 NG/ML (<3.6); CPK CREATINE PHOSPHOKINASE 41 U/L (39-308); CREATININE FOR GFR 1.05 MG/DL (0.70-1.30); GLOMERULAR FILTRATION RATE > 60.0 (>42); GLUCOSE, FASTING 116 MG/DL (70-100); MB/CK RELATIVE INDEX 2.44 (< OR =4); POTASSIUM SERUM 4.5 MEQ/L (3.5-5.1); SODIUM LEVEL 140 MEQ/L (136-145); THYROID STIMULATING HORMONE 0.034 uIU/ML (0.358-3.740); TOTAL PROTEIN 7.5 GM/DL (6.4-8.2); TROPONIN I < 0.02 NG/ML (< 0.10)
--- NOTE | 2020-05-16 10:23 | REP ---
REASON: Dizziness. FINDINGS: The technique utilized in obtaining the radiograph has magnified the cardiac silhouette and accentuated the interstitial markings. The superior mediastinal structures are midline. The cardiac silhouette is unremarkable in size, shape, and position. The diaphragmatic surfaces of the lungs are regular, and the costophrenic angles are clear. The pulmonary torres are clear. The imaged osseous structures are intact. IMPRESSION: There is no acute cardiopulmonary disease. Electronically Signed by Juan Millan DO 05/16/2020 12:55 P
[2020-05-16] MEDS ORDERED: LOSA50TA88 PO (11:39)
[2020-05-16] MEDS ORDERED: PROP80CA PO (11:39)
[2020-05-16] MEDS ORDERED: METH10TA PO (11:39)
[2020-05-16] MEDS ORDERED: PROPRANOLOL 20 MG TAB PO ONE ×2 (13:45→17:00)
[2020-05-16 14:03] LABS: HEMOGLOBIN A1c 6.2 %
--- NOTE | 2020-05-16 15:38 | HPEPDOC ---
General Date of Admission 05/16/20 Date of Service: May 16, 2020 Chief Complaint The patient is a 75-year-old male admitted with a reason for visit of Weakness. Source: Patient Exam Limitations: No limitations Timing/Duration: 24 hours Severity: Mild Associated Symptoms: Dizziness History of Present Illness 75-year-old male with past medical history of atrial fibrillation on Eliquis, C OPD, hypertension, hyperthyroidism and chronic back pain presents from home with lightheadedness. Patient stated that since the morning he has been having lightheadedness with palpitations. Patient was recently diagnosed with hyperthyroidism, he is on methimazole and propranolol therapy. Dr. Cody follows him In the ED, he is found to be in atrial fibrillation with rapid ventricular rate, congestive heart failure. He denies any chest pain, nausea, vomiting, diarrhea or constipation. Home Medications Scheduled Apixaban (Eliquis) 5 Mg Tab, 5 MG PO BID, (Reported) Brimonidine Tartrate/Timolol (Combigan 0.2%-0.5% Eye Drops) 1 Eli Eli, 1 DROP OU BID, (Reported) Budesonide/Formoterol (Symbicort 160-4.5 Mcg Inhaler) 60 Puff/Inhaler Aers, 2 PUFF INH BID, (Reported) Latanoprost (Xalatan) 0.005 % Eli, 1 DROP OU QHS, (Reported) Losartan Potassium (Losartan Potassium) 50 Mg Tablet, 25 MG PO DAILY, (Reported) Methimazole (Methimazole) 10 Mg Tablet, 30 MG PO DAILY, (Reported) Omeprazole (Omeprazole) 20 Mg Cap, 20 MG PO DAILY, (Reported) Potassium Chloride (Potassium Chloride) 10 Meq Tab, 10 MEQ PO DAILY, (Reported) Pravastatin Sodium (Pravastatin Sodium) 20 Mg Tab, 20 MG PO DAILY, (Reported) Propranolol HCl (Propranolol HCl ER) 80 Mg Cap.sa.24h, 80 MG PO DAILY, (Reported) Torsemide (Torsemide) 20 Mg Tab, 20 MG PO DAILY, (Reported) Scheduled PRN Acetaminophen with Codeine (Tylenol with Codeine #3 Tablet) 1 Tab Tab, 1 TAB PO Q6H PRN for PAIN, (Reported) Allergies Coded Allergies: Penicillins (Verified Allergy, Unknown, 04/20/20) RASH oxytetracycline (Verified Allergy, Unknown, 04/20/20) RASH Past Medical History Medical History 1. COPD. 2. Atrial fibrillation. 3. Hypertension. 4. Chronic back pain Hyperthyroidism Surgical History 1. Cholecystectomy. Family History I personally reviewed family history and found not pertinent Social History * Smoker: Denies, former Smoker Alcohol: Denies Drugs: denies A-FIB/CHADSVASC A-FIB History Current/History of A-Fib/PAF?: Yes Current PO Anticoag Therapy: Yes Review of Systems Constitutional: Denies: Chills, Fever Eyes: Denies: Pain ENT: Denies: Head Aches Skin: Denies: Rash Pulmonary: Denies: Dyspnea Cardiovascular: Reports: Palpitations, Lt Headedness Gastrointestinal: Denies: Nausea Genitourinary: Denies: Dysuria Hematologic: Denies: Bruising Endocrine: Denies: Polydipsia Musculoskeletal: Denies: Neck Pain, Back Pain Neurological: Denies: Weakness Psych: Reports: Mood Normal Physical Examination General Exam: Positive: Alert, Cooperative Eye Exam: Positive: PERRLA ENT Exam: Positive: Atraumatic Neck Exam: Positive: Supple; Negative: JVD Chest Exam: Positive: Clear to auscultation Heart Exam: Positive: Irregular Rhythm; Negative: Rate Normal Telemetry: Positive: Atrial fibrillation Abdomen Exam: Positive: Normal bowel sounds Extremity Exam: Negative: Clubbing Skin Exam: Positive: Nl turgor and temperature Neuro Exam: Positive: Strength at 5/5 X4 ext, Cranial Nerves 3-12 NL Psych Exam: Positive: Mental status NL Vital Signs Vital Signs Date Time Temp Pulse Resp B/P (MAP) Pulse Ox O2 Delivery O2 Flow Rate FiO2 05/16/20 12:16 128/83 (98) 05/16/20 12:13 115 20 91 Nasal Cannula 2.0 05/16/20 09:17 98.8 Laboratory Data Labs 24H Laboratory Tests 2 05/16/20 09:22: Immature Granulocyte % (Auto) 0.3, Neutrophils (%) (Auto) 54.3, Lymphocytes (%) (Auto) 30.1, Monocytes (%) (Auto) 9.5H, Eosinophils (%) (Auto) 4.8H, Basophils (%) (Auto) 1.0, Neutrophils # (Auto) 3.8, Lymphocytes # (Auto) 2.1, Monocytes # (Auto) 0.7, Eosinophils # (Auto) 0.3, Basophils # (Auto) 0.1, Nucleated Red Blood Cells % (auto) 0.0, Prothrombin Time 16.2H, Prothromb Time International Ratio 1.33, Anion Gap 6L, Glomerular Filtration Rate > 60.0, Estimated Mean Plasma Glucose 131H, Hemoglobin A1c 6.2, Calcium Level 9.0, Total Bilirubin 0.4, Direct Bilirubin 0.1, Aspartate Amino Transf (AST/SGOT) 17, Alanine Aminotransferase (ALT/SGPT) 13, Alkaline Phosphatase 76, Total Creatine Kinase 41, Creatine Kinase MB < 1.0, Creatine Kinase MB Relative Index 2.44, Troponin I < 0.02, Total Protein 7.5, Albumin 3.2, Albumin/Globulin Ratio 0.7, Thyroid Stimulating Hormone (TSH) 0.034L, Free Thyroxine 1.51H CBC/BMP Laboratory Tests 05/16/20 09:22 Assessment/Plan 75-year-old male with past medical history of atrial fibrillation on Eliquis, COPD, hypertension, hyperthyroidism and chronic back pain presents from home with lightheadedness. Patient stated that since the morning he has been having lightheadedness with palpitations. Patient was recently diagnosed with hyperthyroidism, he is on methimazole and propranolol therapy. Dr. Cody follows him In the ED, he is found to be in atrial fibrillation with rapid ventricular rate, congestive heart failure. He denies any chest pain, nausea, vomiting, diarrhea or constipation. 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 Cody in the outpatient settings Plan / VTE VTE Prophylaxis Ordered?: Yes PHILIP NEWTON DO May 16, 2020 15:38
[2020-05-16] MEDS: TORSEMIDE 20 MG TAB PO SCH (16:58)
[2020-05-16] MEDS: LOSARTAN 50MG TABLET PO SCH (16:58)
[2020-05-16] MEDS: POTASSIUM CHLORIDE 10 MEQ SR TABLET PO SCH (16:58)
[2020-05-16] MEDS: PRAVASTATIN 20 MG TAB PO SCH (16:58)
[2020-05-16] MEDS: OMEPRAZOLE 20 MG CAP PO SCH (16:59)
--- NOTE | 2020-05-16 17:45 | ECGEPIP ---
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
[2020-05-16 17:50] VITALS: BP 130/65
[2020-05-16 17:52] LABS: FREE T4 1.61 NG/DL (0.76-1.46); MAGNESIUM LEVEL 2.1 MG/DL (1.8-2.4); PHOSPHORUS LEVEL 3.6 MG/DL (2.5-4.9); TROPONIN I < 0.02 NG/ML (< 0.10)
[2020-05-16] MEDS: ACETAMINOPH W/CODEINE #3 TAB UD PO PRN (19:57)
[2020-05-16] MEDS: SYMBICORT 160/4.5MCG INHALER 6GM INH SCH (20:15)
[2020-05-16] MEDS: LATANOPROST 0.005% OPHTH SOLN 2.5 ML OU SCH (20:45)
[2020-05-16] MEDS: APIXABAN 5 MG TAB (ELIQUIS) PO SCH (20:46)
[2020-05-16] MEDS ORDERED: SYMBICORT 160/4.5MCG INHALER 6GM INH SCH (21:00)
[2020-05-16 22:00] VITALS: BP 134/68
[2020-05-17 06:00] VITALS: BP 159/91
[2020-05-17 06:35] LABS: HEMATOCRIT 46.7 % (42.0-52.0); HEMOGLOBIN 14.7 g/dl (13.5-17.5); MEAN CORPUSCULAR HGB CONC 31.5 g/dl (32.0-36.5); PLATELET COUNT, AUTOMATED 455 10^3/uL (150-450); RED BLOOD COUNT 5.25 10^6/uL (4.30-6.10); WHITE BLOOD COUNT 7.5 10^3/uL (4.0-10.0)
[2020-05-17] MEDS: ACETAMINOPH W/CODEINE #3 TAB UD PO PRN (06:49)
[2020-05-17 07:02] LABS: BLOOD UREA NITROGEN 18 MG/DL (7-18); CALCIUM LEVEL 9.6 MG/DL (8.8-10.2); CARBON DIOXIDE LEVEL 32 MEQ/L (21-32); CHLORIDE LEVEL 101 MEQ/L (98-107); CREATININE FOR GFR 1.12 MG/DL (0.70-1.30); GLOMERULAR FILTRATION RATE > 60.0 (>42); GLUCOSE, FASTING 119 MG/DL (70-100); MAGNESIUM LEVEL 2.2 MG/DL (1.8-2.4); POTASSIUM SERUM 4.5 MEQ/L (3.5-5.1); SODIUM LEVEL 139 MEQ/L (136-145); TROPONIN I < 0.02 NG/ML (< 0.10)
[2020-05-17] MEDS: SYMBICORT 160/4.5MCG INHALER 6GM INH SCH ×2 (07:31→20:02)
[2020-05-17] MEDS ORDERED: PROPRANOLOL 80 MG LA CAP PO SCH (09:00)
[2020-05-17] MEDS: PRAVASTATIN 20 MG TAB PO SCH (09:17)
[2020-05-17] MEDS: APIXABAN 5 MG TAB (ELIQUIS) PO SCH ×2 (09:17→20:46)
[2020-05-17] MEDS: OMEPRAZOLE 20 MG CAP PO SCH (09:18)
[2020-05-17] MEDS: POTASSIUM CHLORIDE 10 MEQ SR TABLET PO SCH (09:18)
[2020-05-17] MEDS: TORSEMIDE 20 MG TAB PO SCH (09:19)
[2020-05-17] MEDS: LOSARTAN 50MG TABLET PO SCH (09:19)
[2020-05-17] MEDS: PROPRANOLOL 60 MG LA CAP PO SCH (09:19)
[2020-05-17 14:00] VITALS: BP 142/85
--- NOTE | 2020-05-17 19:41 | IPNPDOC ---
Date Seen The patient was seen on 05/17/20. Progress Note SUBJECTIVE: TSH slightly improved, HR 110-120 up to 150 x 1. Increased propanolol to 120 mg x 1. He denies any chest pain, nausea, vomiting, diarrhea or constipation. OBJECTIVE: VITAL SIGNS: Please see below PHYSICAL EXAMINATION: GENERAL: in NAD, resting comfortably CVS: irregularly irregular, S1S2, no M/R/G PULM: CTAB, no W/R/R GI: soft, obese, nontender, nondistended, BS + EXT: +1 pitting edema in bilateral lower ext, no atrophy NEURO: C2-C12 intact, no focal deficits LABORATORY: No new labs IMAGING: No new imaging ASSESSMENT: 75 y/o M admitted for acute atrial fib with RVR, hyperthyroidism. PLAN: 1. Atrial fibrillation with RVR, acute - HR improved after propanolol - EKG negative for acute ischemic changes - F/u Echo - Telemetry - C/w propanolol, eliquis 2. Hyperthyroidism, chronic - Patient on methimazole therapy with propranolol - T4 slightly elevated, TSH 0.03 - Follow-up with Dr. Cody in the outpatient settings 3. DVT px. - Eliquis DISPOSITION: C/w current treatment. Plan is for discharge home when medically improved. VS, I&O, 24H, Bran Vital Signs/I&O Vital Signs Date Time Temp Pulse Resp B/P (MAP) Pulse Ox O2 Delivery O2 Flow Rate FiO2 05/17/20 14:00 98.0 85 18 142/85 (104) 91 Room Air 05/17/20 06:00 2.0 I&O- Last 24 Hours up to 6 AM 05/17/20 06:00 Intake Total 880 ml Output Total 500 ml Balance 380 ml Laboratory Data 24H LABS Laboratory Tests 2 05/16/20 23:58: Troponin I < 0.02 05/17/20 06:18: Troponin I < 0.02, Nucleated Red Blood Cells % (auto) 0.0, Anion Gap 6L, Glomerular Filtration Rate > 60.0, Calcium Level 9.6, Magnesium Level 2.2 CBC/BMP Laboratory Tests 05/17/20 06:18 Current Medications Current Medications Medications (Trade) Dose Ordered Sig/Sammy Route PRN Reason Start Time Stop Time Status Last Admin Dose Admin Acetaminophen/ Codeine Phosphate (Tylenol/Codeine #3 Tablet) 1 ea Q6H PRN PO PAIN 05/16/20 16:00 05/17/20 06:49 Apixaban (Eliquis) 5 mg BID PO 05/16/20 21:00 05/17/20 09:17 Budesonide/ Formoterol Fumarate (Symbicort 160/ 4.5mcg) 2 puff BID INH 05/16/20 21:00 05/16/20 17:50 DC Budesonide/ Formoterol Fumarate (Symbicort 160/ 4.5mcg) 2 puff RBID INH 05/16/20 20:00 05/17/20 07:31 Home Med (Med Rec Complete!) ASDIRECTED XX 05/16/20 11:45 05/16/20 11:40 DC Latanoprost (Xalatan 0.005% Op Soln) 1 drop QHS OU 05/16/20 21:00 05/16/20 20:45 Losartan Potassium (Cozaar) 25 mg DAILY PO 05/16/20 09:00 05/17/20 09:19 Methimazole (Tapazole) 30 mg DAILY PO 05/16/20 09:00 05/17/20 09:17 Omeprazole (PriLOSEC) 20 mg DAILY PO 05/16/20 09:00 05/17/20 09:18 Potassium Chloride (Micro-K Extencaps) 10 meq DAILY PO 05/16/20 09:00 05/17/20 09:18 Pravastatin Sodium (Pravachol) 20 mg DAILY PO 05/16/20 09:00 05/17/20 09:17 Propranolol HCl (Inderal La) 80 mg DAILY PO 05/16/20 09:00 Cancel Propranolol HCl (Inderal La) 80 mg DAILY PO 05/17/20 09:00 05/17/20 08:48 DC Propranolol HCl (Inderal La) 120 mg DAILY PO 05/17/20 09:00 05/17/20 09:19 Torsemide (Demadex) 20 mg DAILY PO 05/16/20 09:00 05/17/20 09:19 Allergies Coded Allergies: Penicillins (Verified Allergy, Unknown, 04/20/20) RASH oxytetracycline (Verified Allergy, Unknown, 04/20/20) RASH Heidi Zamudio MD May 17, 2020 19:41
[2020-05-17] MEDS: LATANOPROST 0.005% OPHTH SOLN 2.5 ML OU SCH (20:46)
[2020-05-17 22:00] VITALS: BP 142/83
[2020-05-18 06:00] VITALS: BP 124/69
[2020-05-18 06:19] LABS: HEMATOCRIT 47.1 % (42.0-52.0); HEMOGLOBIN 15.1 g/dl (13.5-17.5); MEAN CORPUSCULAR HEMOGLOBIN 28.4 pg (27.0-33.0); MEAN CORPUSCULAR HGB CONC 32.1 g/dl (32.0-36.5); MEAN CORPUSCULAR VOLUME 88.7 fl (80.0-96.0); PLATELET COUNT, AUTOMATED 468 10^3/uL (150-450); RED BLOOD COUNT 5.31 10^6/uL (4.30-6.10); WHITE BLOOD COUNT 7.5 10^3/uL (4.0-10.0)
[2020-05-18 06:42] LABS: ALBUMIN 3.1 GM/DL (3.2-5.2); ALT/SGPT 15 U/L (12-78); BILIRUBIN,TOTAL 0.6 MG/DL (0.2-1.0); BLOOD UREA NITROGEN 19 MG/DL (7-18); CALCIUM LEVEL 9.4 MG/DL (8.8-10.2); CARBON DIOXIDE LEVEL 33 MEQ/L (21-32); CHLORIDE LEVEL 100 MEQ/L (98-107); CREATININE FOR GFR 1.22 MG/DL (0.70-1.30); GLOMERULAR FILTRATION RATE > 60.0 (>42); GLUCOSE, FASTING 134 MG/DL (70-100); POTASSIUM SERUM 4.2 MEQ/L (3.5-5.1); SODIUM LEVEL 138 MEQ/L (136-145); TOTAL PROTEIN 8.2 GM/DL (6.4-8.2)
[2020-05-18] MEDS: SYMBICORT 160/4.5MCG INHALER 6GM INH SCH (07:37)
[2020-05-18 08:32] VITALS: BP 117/62
[2020-05-18] MEDS: LOSARTAN 50MG TABLET PO SCH (08:32)
[2020-05-18] MEDS: APIXABAN 5 MG TAB (ELIQUIS) PO SCH (08:32)
[2020-05-18] MEDS: POTASSIUM CHLORIDE 10 MEQ SR TABLET PO SCH (08:33)
[2020-05-18] MEDS: PROPRANOLOL 60 MG LA CAP PO SCH (08:33)
[2020-05-18] MEDS: OMEPRAZOLE 20 MG CAP PO SCH (08:33)
[2020-05-18] MEDS: TORSEMIDE 20 MG TAB PO SCH (08:33)
[2020-05-18] MEDS: PRAVASTATIN 20 MG TAB PO SCH (08:33)
[2020-05-18] MEDS ORDERED: INDE60CA4 PO (09:53)
[2020-05-18] MEDS: ACETAMINOPH W/CODEINE #3 TAB UD PO PRN (12:36)
--- NOTE | 2020-05-18 23:53 | DS.PDOC ---
Discharge Summary General Date of Admission May 16, 2020 at 15:38 Date of Discharge 05/18/20 Attending Physician: Heidi Zamudio MD Discharge Summary HISTORY OF PRESENT ILLNESS: 75-year-old male with past medical history of atrial fibrillation on Eliquis, COPD, hypertension, hyperthyroidism and chronic back pain presents from home with lightheadedness. Patient stated that since the morning he has been having lightheadedness with palpitations. Patient was recently diagnosed with hyperthyroidism, he is on methimazole and propranolol therapy. Dr. Cody follows him as outpatient. In the ED, he is found to be in atrial fibrillation with rapid ventricular rate, congestive heart failure. He denies any chest pain, nausea, vomiting, diarrhea or constipation. HOSPITAL COURSE: When trending his labs, it showed TSH slightly improved from last on file from 04/2020. His HR 110-120, even as high as 150 x 1. We increased propanolol to 120 mg daily and showed marked improvement in HR. His ATrial fibrillation with RVR was likely 2/2 to uncontrolled hyperthyroid. He denies any chest pain, nausea, vomiting, diarrhea or constipation. Last echocardiogram on file from 04/2020, so no new needed to be done. By 05/18/20, patient had remained stable. He was discharged home with increased ER propranolol 120 mg PO daily and advised to f/u with both PCP, endocrinology closely. PAST MEDICAL HISTORY: 1. COPD. 2. Atrial fibrillation. 3. Hypertension. 4. Chronic back pain 5. Hyperthyroidism SURGICAL HISTORY 1. Cholecystectomy. FAMILY HISTORY family history not found to be pertinent SOCIAL HISTORY Smoker: Denies, former Smoker Alcohol: Denies Drugs: denies ALLERGIES: Please see below DISCHARGE MEDICATIONS: Please see below PHYSICAL EXAMINATION: GENERAL: in NAD, resting comfortably CVS: irregularly irregular, S1S2, no M/R/G PULM: CTAB, no W/R/R GI: soft, obese, nontender, nondistended, BS + EXT: +1 pitting edema in bilateral lower ext, no atrophy NEURO: C2-C12 intact, no focal deficits LABORATORY: No new labs IMAGING: No new imaging ASSESSMENT: 75 y/o M admitted for acute atrial fib with RVR, hyperthyroidism. PLAN: 1. Atrial fibrillation with RVR, acute - HR improved after propanolol - EKG negative for acute ischemic changes - Echo from 04/2020 above, no new echo needed - C/w propanolol, eliquis - Advised to f/u with PCP, cardiology as scheduled 2. Hyperthyroidism, chronic - Patient on methimazole therapy with propranolol - T4 slightly elevated, TSH 0.03 - Follow-up with Dr. Cody in the outpatient settings 3. DVT px. - Eliquis DISPOSITION: Discharge home today in improved condition. TIME SPENT ON DISCHARGE: Greater than 30 minutes. Vital Signs/I&Os Vital Signs Date Time Temp Pulse Resp B/P (MAP) Pulse Ox O2 Delivery O2 Flow Rate FiO2 05/18/20 13:06 16 05/18/20 12:36 93 Room Air 05/18/20 08:33 80 05/18/20 08:32 117/62 05/18/20 06:00 98.4 05/17/20 22:02 2.0 I&O- Last 24 Hours up to 6 AM 05/18/20 06:00 Intake Total 1290 ml Output Total 3450 ml Balance -2160 ml Laboratory Data Labs 24H Laboratory Tests 2 05/18/20 06:01: Nucleated Red Blood Cells % (auto) 0.0, Anion Gap 5L, Glomerular Filtration Rate > 60.0, Calcium Level 9.4, Total Bilirubin 0.6, Aspartate Amino Transf (AST/SGOT) 15, Alanine Aminotransferase (ALT/SGPT) 15, Alkaline Phosphatase 84, Total Protein 8.2, Albumin 3.1L, Albumin/Globulin Ratio 0.6 CBC/BMP Laboratory Tests 05/18/20 06:01 Discharge Medications Scheduled Apixaban (Eliquis) 5 Mg Tab, 5 MG PO BID, (Reported) Brimonidine Tartrate/Timolol (Combigan 0.2%-0.5% Eye Drops) 1 Eli Eli, 1 DROP OU BID, (Reported) Budesonide/Formoterol (Symbicort 160-4.5 Mcg Inhaler) 60 Puff/Inhaler Aers, 2 PUFF INH BID, (Reported) Latanoprost (Xalatan) 0.005 % Eli, 1 DROP OU QHS, (Reported) Losartan Potassium (Losartan Potassium) 50 Mg Tablet, 25 MG PO DAILY, (Reported) Methimazole (Methimazole) 10 Mg Tablet, 30 MG PO DAILY, (Reported) Omeprazole (Omeprazole) 20 Mg Cap, 20 MG PO DAILY, (Reported) Potassium Chloride (Potassium Chloride) 10 Meq Tab, 10 MEQ PO DAILY, (Reported) Pravastatin Sodium (Pravastatin Sodium) 20 Mg Tab, 20 MG PO DAILY, (Reported) Propranolol Hcl (Inderal LA) 60 Mg Cap.sa.24h, 120 MG PO DAILY Torsemide (Torsemide) 20 Mg Tab, 20 MG PO DAILY, (Reported) Scheduled PRN Acetaminophen with Codeine (Tylenol with Codeine #3 Tablet) 1 Tab Tab, 1 TAB PO Q6H PRN for PAIN, (Reported) Allergies Coded Allergies: Penicillins (Verified Allergy, Unknown, 04/20/20) RASH oxytetracycline (Verified Allergy, Unknown, 04/20/20) RASH Heidi Zamudio MD May 18, 2020 23:53
== END 2020-05-18 14:24 | disposition home or self-care (01) ==
LOC: M ED 08:58 → EDBD 08:58 → INTOOBSV 15:38 → M ED INP 15:38 → ENRESERV 16:11 → M MSPAV 17:46
PROVIDERS: ADMIT Internal Medicine; ATTEND Internal Medicine
DX: I48.91 Unspecified atrial fibrillation (principal); E05.00 Thyrotoxicosis with diffuse goiter without thyrotoxic crisis or storm; I10 Essential (primary) hypertension; I50.9 Heart failure, unspecified; J44.9 Chronic obstructive pulmonary disease, unspecified; M54.5 Low back pain; Z79.01 Long term (current) use of anticoagulants; Z79.899 Other long term (current) drug therapy; Z87.891 Personal history of nicotine dependence; Z88.1 Allergy status to other antibiotic agents; Z88.0 Allergy status to penicillin
CPT/HCPCS: 36415; 71045; 80048; 80053; 80076; 82550; 82553; 83036; 83735; 84100; 84439; 84443; 84484; 85025; 85027; 85610; 93005; 93041; 94640; 94760; 97161; 97165; 99285; G0378

== ENCOUNTER → 2020-06-20 | Outpatient (REF) | payer MEDICARE, MEDICAID ==
[~2020-06-20] MED LIST changes: -AMIO200T PO; +AMIO200T3 PO; +INDE60CA4 PO; +PROP80CA PO
[2020-06-21 15:52] LABS: FREE T3 2.1 PG/ML (2.2-4.0); FREE T4 1.03 NG/DL (0.76-1.46); THYROID STIMULATING HORMONE 10.3 uIU/ML (0.358-3.740)
== END ==
LOC: M LABDRAWC 11:49
PROVIDERS: ATTEND Family Medicine
DX: I48.91 Unspecified atrial fibrillation (principal); E05.90 Thyrotoxicosis, unspecified without thyrotoxic crisis or storm
CPT/HCPCS: 36415; 84439; 84443; 84481; G0463

== ENCOUNTER → 2020-07-20 | Outpatient (REF) | payer MEDICARE, MEDICAID ==
[2020-07-20 13:25] LABS: FREE T4 0.57 NG/DL (0.76-1.46); THYROID STIMULATING HORMONE 60.5 uIU/ML (0.358-3.740)
== END ==
LOC: M LABDRAWC 11:12
PROVIDERS: ATTEND Internal Medicine Endocrinology, Diabetes & Metabolism
DX: E05.00 Thyrotoxicosis with diffuse goiter without thyrotoxic crisis or storm (principal)

== ENCOUNTER → 2020-09-20 | Outpatient (REF) | payer MEDICARE, MEDICAID ==
[2020-09-20 12:38] LABS: FREE T3 2.2 PG/ML (2.2-4.0); FREE T4 1.3 NG/DL (0.76-1.46); THYROID STIMULATING HORMONE 5.96 uIU/ML (0.358-3.740)
== END ==
LOC: M SFHCCLAY 08:11
PROVIDERS: ATTEND Family Medicine
DX: E03.9 Hypothyroidism, unspecified (principal)

== ENCOUNTER → 2020-11-16 | Outpatient (REF) | payer MEDICARE, MEDICAID ==
[~2020-11-16] MED LIST changes: +CYAN500T14 PO; -CYAN500T8 PO
[2020-11-16 15:56] LABS: HEMATOCRIT 49.3 % (42.0-52.0); HEMOGLOBIN 15.4 g/dl (13.5-17.5); MEAN CORPUSCULAR HGB CONC 31.2 g/dl (32.0-36.5); MEAN CORPUSCULAR VOLUME 92.8 fl (80.0-96.0); PLATELET COUNT, AUTOMATED 407 10^3/uL (150-450); RED BLOOD COUNT 5.31 10^6/uL (4.30-6.10); WHITE BLOOD COUNT 6.6 10^3/uL (4.0-10.0)
[2020-11-16 16:30] LABS: BLOOD UREA NITROGEN 16 MG/DL (7-18); CALCIUM LEVEL 9.1 MG/DL (8.8-10.2); CARBON DIOXIDE LEVEL 38 MEQ/L (21-32); CHLORIDE LEVEL 100 MEQ/L (98-107); CREATININE FOR GFR 1.09 MG/DL (0.70-1.30); GLOMERULAR FILTRATION RATE > 60.0 (>42); GLUCOSE, FASTING 109 MG/DL (70-100); POTASSIUM SERUM 4.2 MEQ/L (3.5-5.1); SODIUM LEVEL 140 MEQ/L (136-145)
[2020-11-16 16:40] LABS: FREE T3 2.2 PG/ML (2.2-4.0); FREE T4 1.19 NG/DL (0.76-1.46); THYROID STIMULATING HORMONE 3.64 uIU/ML (0.358-3.740)
== END ==
LOC: M SFHCCLAY 14:31
PROVIDERS: ATTEND Family Medicine
DX: E05.90 Thyrotoxicosis, unspecified without thyrotoxic crisis or storm (principal); I48.0 Paroxysmal atrial fibrillation
CPT/HCPCS: 80048; 84439; 84443; 84481; 85027; 93005; G0463

== ENCOUNTER → 2021-01-04 | Outpatient (CLI) | payer MEDICARE, MEDICAID ==
--- NOTE | 2021-01-04 10:54 | REP ---
INDICATION: R61, NIGHT SWEATS COMPARISON: 05/16/2020 TECHNIQUE: PA and lateral. FINDINGS: The mediastinum and cardiac silhouette are normal. The lung torres are clear and without acute consolidation, effusion, or pneumothorax. The skeletal structures are intact and normal. IMPRESSION: No acute cardiopulmonary process. <Electronically signed by Javier Isabel > 01/04/21 1055
== END ==
LOC: M CLY 10:32
PROVIDERS: ATTEND Physician Assistant
DX: R61 Generalized hyperhidrosis (principal)

== ENCOUNTER → 2021-01-17 | Outpatient (CLI) | payer MEDICARE, MEDICAID | LOC: M LABSMTC 12:43 | PROVIDERS: ATTEND Internal Medicine Cardiovascular Disease | DX: Z11.52 Encounter for screening for COVID-19 (principal) ==

== ENCOUNTER → 2021-04-05 | Outpatient (CLI) | payer MEDICARE, MEDICAID ==
[~2021-04-05] MED LIST changes: +ACET1TAB16; +LEVO50TA5 PO; +SOTA80TA53
== END ==
LOC: M LABSMTC 12:56
PROVIDERS: ATTEND Anesthesiology
DX: Z20.828 Contact with and (suspected) exposure to other viral communicable diseases (principal); Z11.59 Encounter for screening for other viral diseases

== ENCOUNTER 2021-04-10 06:34 | Day surgery (SDC) | payer MEDICARE, MEDICAID ==
[~2021-04-10] VITALS: Ht 182.9 cm; Wt 59.1 kg
[~2021-04-10 06:34] MED LIST changes: +CLINDAMYCIN 900 MG in IV 1 EA IV ONE; +LR 1,000 ML IV ONE
[2021-04-10] MEDS ORDERED: propofoL 200 MG/20 ML VIAL As Ordered ONE ×2 (07:20→07:21)
[2021-04-10] MEDS ORDERED: LIDOCAINE 2% 100MG/5ML SDV (FOR ANES.) As Ordered ONE (07:20)
[2021-04-10 08:45] VITALS: BP 110/66
--- NOTE | 2021-04-10 11:53 | RO ---
OPERATIVE NOTE DATE OF OPERATION: 04/10/2021 PREOPERATIVE DIAGNOSIS: Atrial fibrillation. POSTOPERATIVE DIAGNOSIS: Atrial fibrillation. PROCEDURE: Cardioversion. SURGEON: Mini Lombardo M.D. ANESTHESIOLOGIST: Kari Bergman CRNA. KILN SETTER: None. ANESTHESIA: moderate sedation INDICATIONS FOR PROCEDURE: Mr. Siddiqui is a 75-year-old morbidly obese gentleman who has had trouble with atrial fibrillation for several years. He underwent cardioversion in the past that was successfully in maintaining sinus rhythm for almost two years; but unfortunately, he relapsed a few months ago. We were not able to accomplish good symptom control in spite of reasonable rate control and consequently, the decision was made to proceed with cardioversion. I spoke with the patient on an outpatient basis. He was actually eager to proceed because he felt that in sinus rhythm his quality of life was much better. He has been chronically anticoagulated with Eliquis and has been on Sotalol for both rate control and attempt to accomplish rhythm control. DESCRIPTION OF PROCEDURE: The patient presented in a fasting condition. After appropriate consent was reviewed (previously obtained on an outpatient basis) and the patient was examined, all monitors were applied and a time-out was taken, he received a total of two shocks with defibrillator patches in the anterior position. The initial one was delivered at 300 joules and failed to restore sinus mechanism. Subsequent one was with 360 joules and again failed to restore sinus mechanism. At that point, I aborted any further attempts. The patient awoke from the anesthesia without any obvious consequences. His blood pressure never dropped during the procedure and oxygenation remained also within normal range. CONCLUSION: Unsuccessful attempt to restore sinus rhythm with electric cardioversion. [facility] SYSTEMHumaira
--- NOTE | 2021-04-11 05:50 | ECGEPIP ---
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
== END 2021-04-10 09:05 | disposition home or self-care (01) ==
LOC: M SDC 06:34
PROVIDERS: ATTEND Internal Medicine Cardiovascular Disease
DX: I48.91 Unspecified atrial fibrillation (principal); I10 Essential (primary) hypertension; J44.9 Chronic obstructive pulmonary disease, unspecified; E78.00 Pure hypercholesterolemia, unspecified; G47.33 Obstructive sleep apnea (adult) (pediatric); K21.9 Gastro-esophageal reflux disease without esophagitis; E03.9 Hypothyroidism, unspecified; E66.01 Morbid (severe) obesity due to excess calories; Z88.0 Allergy status to penicillin; Z79.899 Other long term (current) drug therapy

== ENCOUNTER 2021-05-06 13:32 | Emergency (ER) | payer MEDICARE, MEDICAID ==
[~2021-05-06] VITALS: Ht 182.9 cm; Wt 340.0 kg
[~2021-05-06 13:32] MED LIST changes: -CLINDAMYCIN 900 MG in IV 1 EA IV ONE; -LR 1,000 ML IV ONE
--- NOTE | 2021-05-06 19:07 | ECGEPIP ---
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
[2021-05-06 19:25] VITALS: BP 145/67
== END 2021-05-06 19:25 | disposition home or self-care (01) ==
LOC: M ED 13:32 → EDBD 13:32 → M ED 19:25
DX: I48.20 Chronic atrial fibrillation, unspecified (principal); I10 Essential (primary) hypertension; E78.5 Hyperlipidemia, unspecified; E03.9 Hypothyroidism, unspecified; H40.9 Unspecified glaucoma; Z88.0 Allergy status to penicillin; Z88.1 Allergy status to other antibiotic agents; Z79.899 Other long term (current) drug therapy; Z79.01 Long term (current) use of anticoagulants

== ENCOUNTER → 2021-07-11 | Outpatient (CLI) | payer MEDICARE, MEDICAID ==
--- NOTE | 2021-07-11 15:31 | PFTRPT ---
Height: 72.00 Inches Weight: 367.00 Lbs BSA: 2.76 Diagnosis: R06.00 DATE: 07/11/2021 ORDERING PHYSICIAN: LIANET Moon Pre and post bronchodilator studies have excellent technical quality. Forced vital capacity is severely reduced. FEV1 is in proportion. Obstructive index is therefore normal. Expiratory limit of the flow-volume loop does suggest very significant flow rate limitation. No significant bronchodilator response is identified. Total lung capacity is reduced. Residual volume suggests concomitant air trapping. Diffusing capacity is normal. Hemoglobin is acceptable at 15. Airway resistance and conductance are normal. IMPRESSION: At least mild restrictive ventilatory defect with concomitant small airways dysfunction and air trapping. No bronchodilator response. Please correlate clinically. MTDD
== END ==
LOC: M CARPUL 14:58
PROVIDERS: ATTEND Physician Assistant
DX: R06.00 Dyspnea, unspecified (principal)

== ENCOUNTER → 2021-08-22 | Outpatient (REF) | payer MEDICARE, MEDICAID ==
[2021-08-22 16:21] LABS: HEMATOCRIT 45.2 % (42.0-52.0); HEMOGLOBIN 14.5 g/dl (13.5-17.5); MEAN CORPUSCULAR HEMOGLOBIN 29.1 pg (27.0-33.0); MEAN CORPUSCULAR HGB CONC 32.1 g/dl (32.0-36.5); MEAN CORPUSCULAR VOLUME 90.8 fl (80.0-96.0); PLATELET COUNT, AUTOMATED 381 10^3/uL (150-450); RED BLOOD COUNT 4.98 10^6/uL (4.30-6.10); WHITE BLOOD COUNT 7.2 10^3/uL (4.0-10.0)
[2021-08-22 16:57] LABS: ALT/SGPT 15 U/L (12-78); BILIRUBIN,TOTAL 0.6 MG/DL (0.2-1.0); BLOOD UREA NITROGEN 20 MG/DL (7-18); CALCIUM LEVEL 8.8 MG/DL (8.8-10.2); CARBON DIOXIDE LEVEL 35 MEQ/L (21-32); CHLORIDE LEVEL 101 MEQ/L (98-107); CHOLESTEROL LEVEL 155 MG/DL (<200); CHOLESTEROL RISK RATIO 3.875 (<5); CREATININE FOR GFR 1.17 MG/DL (0.70-1.30); FREE T4 1.15 NG/DL (0.76-1.46); GLOMERULAR FILTRATION RATE > 60.0 (>42); GLUCOSE, FASTING 122 MG/DL (70-100); HDL CHOLESTEROL 40 MG/DL (>40); LDL CHOLESTEROL 91 MG/DL (<100); NON-HDL-C 115 MG/DL; POTASSIUM SERUM 4.6 MEQ/L (3.5-5.1); SODIUM LEVEL 140 MEQ/L (136-145); TOTAL PROTEIN 7.6 GM/DL (6.4-8.2); TRIGLYCERIDES LEVEL 118 MG/DL (<150)
[2021-08-22 17:30] LABS: HEMOGLOBIN A1c 6.9 %
== END ==
LOC: M SFHCCLAY 12:04
PROVIDERS: ATTEND Family Medicine
DX: J45.30 Mild persistent asthma, uncomplicated (principal); I10 Essential (primary) hypertension; E03.9 Hypothyroidism, unspecified; M25.531 Pain in right wrist; Z79.899 Other long term (current) drug therapy

== ENCOUNTER → 2021-08-22 | Outpatient (CLI) | payer MEDICARE, MEDICAID ==
--- NOTE | 2021-08-22 14:36 | REP ---
INDICATION: RIGHT WRIST PAIN. COMPARISON: None. TECHNIQUE: Four views FINDINGS: There is no acute fracture or destructive osseous lesion. Degenerative type calcifications are seen in the region of the triangular fibrocartilage complex. IMPRESSION: Chronic changes as described above. <Electronically signed by Juan Millan > 08/22/21 [id number]
== END ==
LOC: M CLY 12:40
PROVIDERS: ATTEND Family Medicine
DX: M25.531 Pain in right wrist (principal); J45.30 Mild persistent asthma, uncomplicated; I10 Essential (primary) hypertension; E03.9 Hypothyroidism, unspecified; Z79.899 Other long term (current) drug therapy; Z23 Encounter for immunization
CPT/HCPCS: 73110; 80053; 80061; 83036; 84439; 84443; 85027; 90682; G0008; G0463

== ENCOUNTER → 2021-08-26 | Outpatient (REF) | payer MEDICARE, MEDICAID ==
[2021-08-26 11:57] LABS: HEMATOCRIT 44.1 % (42.0-52.0); HEMOGLOBIN 14.4 g/dl (13.5-17.5); MEAN CORPUSCULAR HEMOGLOBIN 29.8 pg (27.0-33.0); MEAN CORPUSCULAR HGB CONC 32.7 g/dl (32.0-36.5); MEAN CORPUSCULAR VOLUME 91.1 fl (80.0-96.0); PLATELET COUNT, AUTOMATED 368 10^3/uL (150-450); RED BLOOD COUNT 4.84 10^6/uL (4.30-6.10); WHITE BLOOD COUNT 6.4 10^3/uL (4.0-10.0)
[2021-08-26 12:48] LABS: ALBUMIN 2.9 GM/DL (3.2-5.2); ALT/SGPT 16 U/L (12-78); BILIRUBIN,TOTAL 0.5 MG/DL (0.2-1.0); BLOOD UREA NITROGEN 17 MG/DL (7-18); CALCIUM LEVEL 8.8 MG/DL (8.8-10.2); CARBON DIOXIDE LEVEL 31 MEQ/L (21-32); CHLORIDE LEVEL 102 MEQ/L (98-107); CHOLESTEROL LEVEL 154 MG/DL (<200); CHOLESTEROL RISK RATIO 3.756 (<5); CREATININE FOR GFR 1.11 MG/DL (0.70-1.30); FREE T4 1.16 NG/DL (0.76-1.46); GLOMERULAR FILTRATION RATE > 60.0 (>42); GLUCOSE, FASTING 139 MG/DL (70-100); HDL CHOLESTEROL 41 MG/DL (>40); LDL CHOLESTEROL 84 MG/DL (<100); NON-HDL-C 113 MG/DL; POTASSIUM SERUM 4.3 MEQ/L (3.5-5.1); SODIUM LEVEL 139 MEQ/L (136-145); TOTAL PROTEIN 7.4 GM/DL (6.4-8.2); TRIGLYCERIDES LEVEL 144 MG/DL (<150)
[2021-08-26 16:30] LABS: HEMOGLOBIN A1c 6.8 %
== END ==
LOC: M SFHCCLAY 07:09
PROVIDERS: ATTEND Family Medicine
DX: G47.33 Obstructive sleep apnea (adult) (pediatric) (principal); I10 Essential (primary) hypertension; I48.11 Longstanding persistent atrial fibrillation; E03.9 Hypothyroidism, unspecified; E11.9 Type 2 diabetes mellitus without complications

== ENCOUNTER → 2021-11-28 | Outpatient (REF) | payer MEDICARE, MEDICAID ==
[~2021-11-28] MED LIST changes: +ACET1TAB16 PO; -AMIO200T3 PO; +AMIO200T49 PO; +BACL10TA2 PO; +DICL1PAT6 TOP; +DIGO0.123 PO; +FLON1SPR; +INCR1INH INH; +LOPR1TAB6 PO; +LOPR1TAB7 PO; +LOSA50TA28 PO; -LOSA50TA88 PO; +METF-838 PO; +POTA-136 PO; +POTA-149 PO; -POTA10TA16 PO; +SENN-23 PO; +TRAM50TA2 PO
[2021-11-29 13:29] LABS: HEMOGLOBIN A1c 7.4 %
== END ==
LOC: M SFHCCLAY 14:05
PROVIDERS: ATTEND Family Medicine
DX: G47.33 Obstructive sleep apnea (adult) (pediatric) (principal); E11.9 Type 2 diabetes mellitus without complications

== ENCOUNTER 2021-12-10 04:05 | Inpatient (IN) | payer MEDICARE, MEDICAID ==
[~2021-12-10] VITALS: Ht 182.9 cm; Wt 170.4 kg
[~2021-12-10 04:05] MED LIST changes: -ACET1TAB16 PO; -BACL10TA2 PO; -DICL1PAT6 TOP; -DIGO0.123 PO; -FLON1SPR; -INCR1INH INH; -LOPR1TAB6 PO; -LOPR1TAB7 PO; -METF-838 PO; -POTA-136 PO; -SENN-23 PO; -TRAM50TA2 PO
[2021-12-10] MEDS ORDERED: ACETAMINOPHEN 500 MG TAB PO ONE (04:45)
[2021-12-10 04:59] LABS: BASO % 0.5 % (0.0-1.0); EOS % 0.2 % (0.0-3.0); HEMATOCRIT 42.3 % (42.0-52.0); HEMOGLOBIN 13.6 g/dl (13.5-17.5); LYMPH # 1.6 10^3/uL (1.5-5.0); LYMPH % 18.6 % (24.0-44.0); MEAN CORPUSCULAR HEMOGLOBIN 29.1 pg (27.0-33.0); MEAN CORPUSCULAR HGB CONC 32.2 g/dl (32.0-36.5); MEAN CORPUSCULAR VOLUME 90.4 fl (80.0-96.0); MONO # 1.2 10^3/uL (0.0-0.8); MONO % 14.2 % (2.0-8.0); NEUTROPHILS # 5.7 10^3/uL (1.5-8.5); NEUTROPHILS % 66.3 % (36.0-66.0); PLATELET COUNT, AUTOMATED 462 10^3/uL (150-450); RED BLOOD COUNT 4.68 10^6/uL (4.30-6.10); WHITE BLOOD COUNT 8.6 10^3/uL (4.0-10.0)
[2021-12-10 05:44] LABS: ALBUMIN 2.8 GM/DL (3.2-5.2); ALT/SGPT 18 U/L (12-78); BILIRUBIN,TOTAL 0.9 MG/DL (0.2-1.0); BLOOD UREA NITROGEN 11 MG/DL (7-18); CALCIUM LEVEL 8.7 MG/DL (8.8-10.2); CARBON DIOXIDE LEVEL 27 MEQ/L (21-32); CHLORIDE LEVEL 104 MEQ/L (98-107); CK-MB VALUE MASS < 1.0 NG/ML (<3.6); CPK CREATINE PHOSPHOKINASE 69 U/L (39-308); CREATININE FOR GFR 0.93 MG/DL (0.70-1.30); GLOMERULAR FILTRATION RATE > 60.0 (>42); GLUCOSE, FASTING 143 MG/DL (70-100); MB/CK RELATIVE INDEX 1.45 (< OR =4); POTASSIUM SERUM 4.5 MEQ/L (3.5-5.1); SODIUM LEVEL 139 MEQ/L (136-145); TOTAL PROTEIN 7.9 GM/DL (6.4-8.2)
[2021-12-10] MEDS: METOPROLOL 5 MG/5 ML VIAL IV SCH ×3 (05:59→06:12)
[2021-12-10] MEDS ORDERED: ACET1TAB16 PO (06:50)
[2021-12-10] MEDS ORDERED: METF-838 PO (06:50)
[2021-12-10] MEDS ORDERED: LOPR1TAB7 PO (06:50)
[2021-12-10] MEDS ORDERED: SENN-23 PO (06:50)
[2021-12-10] MEDS ORDERED: INCR1INH INH (06:51)
[2021-12-10] MEDS ORDERED: FLON1SPR (06:51)
[2021-12-10] MEDS: SYMBICORT 160/4.5MCG INHALER 6GM INH SCH ×2 (08:00→19:33)
[2021-12-10] MEDS: TIOTROPIUM INHALER/CAPSULE (SPIRIVA) INH SCH (08:00)
[2021-12-10] MEDS ORDERED: HOME MED LIST COMPLETE! XX SCH (08:45)
[2021-12-10] MEDS ORDERED: DIGOXIN INJ 0.5 MG/2 ML AMP (J1160) IV ONE ×2 (09:30→18:00)
[2021-12-10] MEDS ORDERED: KETOROLAC 30 MG/ML 1ML VIAL IV ONE (09:30)
[2021-12-10] MEDS ORDERED: DEXTROSE 50% 50 ML SYRINGE IV PRN (10:25)
[2021-12-10] MEDS ORDERED: GLUCOSE 4GM CHEW TABLET PO PRN (10:25)
[2021-12-10] MEDS ORDERED: GLUCAGON INJ 1MG VIAL SC PRN (10:25)
[2021-12-10] MEDS: APIXABAN 5 MG TAB (ELIQUIS) PO SCH ×2 (11:02→21:14)
[2021-12-10] MEDS: OMEPRAZOLE 20MG CAP PO SCH (11:03)
[2021-12-10] MEDS: TORSEMIDE 20 MG TAB PO SCH (11:03)
[2021-12-10] MEDS: METOPROLOL TARTRATE 100MG TAB PO SCH ×2 (11:04→21:14)
[2021-12-10] MEDS: LEVOTHYROXINE 50MCG TABLET (0.05MG) PO SCH (11:04)
[2021-12-10] MEDS: HumaLOG INSULIN (NovoLOG) PER UNIT SC SCH ×3 (14:08→21:00)
[2021-12-10 16:05] VITALS: BP 152/78
[2021-12-10] MEDS: LATANOPROST 0.005% OPHTH SOLN 2.5 ML OU SCH (21:00)
[2021-12-10 21:07] VITALS: BP 121/74
[2021-12-10] MEDS: PRAVASTATIN 20 MG TAB PO SCH (21:14)
[2021-12-10] MEDS: ACETAMINOPHEN TAB 650MG DOSE (2X325MG) PO PRN (21:15)
[2021-12-11 00:25] VITALS: BP 117/70
[2021-12-11 04:05] VITALS: BP 147/68
[2021-12-11 05:41] LABS: BASO # 0.1 10^3/uL (0.0-0.2); BASO % 0.6 % (0.0-1.0); EOS # 0.2 10^3/uL (0.0-0.5); EOS % 2.3 % (0.0-3.0); HEMATOCRIT 42.7 % (42.0-52.0); HEMOGLOBIN 13.4 g/dl (13.5-17.5); LYMPH # 1.4 10^3/uL (1.5-5.0); LYMPH % 17.1 % (24.0-44.0); MEAN CORPUSCULAR HEMOGLOBIN 28.8 pg (27.0-33.0); MEAN CORPUSCULAR HGB CONC 31.4 g/dl (32.0-36.5); MEAN CORPUSCULAR VOLUME 91.8 fl (80.0-96.0); MONO # 1.1 10^3/uL (0.0-0.8); MONO % 12.6 % (2.0-8.0); NEUTROPHILS # 5.6 10^3/uL (1.5-8.5); NEUTROPHILS % 67.2 % (36.0-66.0); PLATELET COUNT, AUTOMATED 435 10^3/uL (150-450); RED BLOOD COUNT 4.65 10^6/uL (4.30-6.10); WHITE BLOOD COUNT 8.3 10^3/uL (4.0-10.0)
[2021-12-11] MEDS: LEVOTHYROXINE 50MCG TABLET (0.05MG) PO SCH (05:53)
[2021-12-11] MEDS: ACETAMINOPHEN TAB 650MG DOSE (2X325MG) PO PRN ×3 (05:53→21:21)
[2021-12-11 06:03] LABS: BLOOD UREA NITROGEN 14 MG/DL (7-18); CALCIUM LEVEL 8.9 MG/DL (8.8-10.2); CARBON DIOXIDE LEVEL 32 MEQ/L (21-32); CHLORIDE LEVEL 103 MEQ/L (98-107); CREATININE FOR GFR 0.93 MG/DL (0.70-1.30); GLOMERULAR FILTRATION RATE > 60.0 (>42); GLUCOSE, FASTING 112 MG/DL (70-100); POTASSIUM SERUM 4.1 MEQ/L (3.5-5.1); SODIUM LEVEL 138 MEQ/L (136-145)
[2021-12-11] MEDS: TIOTROPIUM INHALER/CAPSULE (SPIRIVA) INH SCH (07:51)
[2021-12-11] MEDS: SYMBICORT 160/4.5MCG INHALER 6GM INH SCH ×2 (07:52→19:16)
[2021-12-11 08:00] VITALS: BP 162/96
[2021-12-11] MEDS: HumaLOG INSULIN (NovoLOG) PER UNIT SC SCH ×4 (08:06→20:24)
[2021-12-11] MEDS: TORSEMIDE 20 MG TAB PO SCH (08:06)
[2021-12-11] MEDS: METOPROLOL TARTRATE 100MG TAB PO SCH (08:06)
[2021-12-11] MEDS: APIXABAN 5 MG TAB (ELIQUIS) PO SCH (08:06)
[2021-12-11] MEDS: OMEPRAZOLE 20MG CAP PO SCH (08:06)
[2021-12-11] MEDS: DICLOFENAC EPOLAMINE 1.3 % PATCH TOP SCH ×2 (09:00→20:31)
[2021-12-11] MEDS ORDERED: DIGOXIN INJ 0.5 MG/2 ML AMP (J1160) IV ONE (09:20)
[2021-12-11] MEDS ORDERED: oxyCODONE 5MG TAB PO ONE (11:15)
[2021-12-11] MEDS ORDERED: cefTRIAXone SOD 2 GM in D5W MINI-BAG PLUS 50 ML IV SCH (12:00)
[2021-12-11 16:00] VITALS: BP 133/61
[2021-12-11] MEDS: FUROSEMIDE 40MG/4ML VIAL (J1940) IV SCH (17:30)
[2021-12-11 19:51] VITALS: BP 131/77
[2021-12-11] MEDS: METOPROLOL 5 MG/5 ML VIAL IV SCH ×3 (19:55→20:30)
[2021-12-11] MEDS: PRAVASTATIN 20 MG TAB PO SCH (20:30)
[2021-12-11] MEDS: LATANOPROST 0.005% OPHTH SOLN 2.5 ML OU SCH (21:00)
[2021-12-11] MEDS: METOPROLOL TART 50 MG TAB PO SCH ×2 (21:05→23:59)
[2021-12-11 23:55] VITALS: BP 127/69
[2021-12-11] MEDS: cefTRIAXone SOD 2 GM in D5W MINI-BAG PLUS 50 ML IV SCH (23:59)
[2021-12-12 04:00] VITALS: BP 109/71
[2021-12-12] MEDS: ACETAMINOPHEN TAB 650MG DOSE (2X325MG) PO PRN ×3 (04:24→09:39)
[2021-12-12] MEDS: LEVOTHYROXINE 50MCG TABLET (0.05MG) PO SCH (05:57)
[2021-12-12] MEDS: METOPROLOL TART 50 MG TAB PO SCH ×4 (05:57→23:07)
[2021-12-12] MEDS: TIOTROPIUM INHALER/CAPSULE (SPIRIVA) INH SCH (07:21)
[2021-12-12] MEDS: SYMBICORT 160/4.5MCG INHALER 6GM INH SCH ×2 (07:21→19:14)
[2021-12-12 08:00] VITALS: BP 127/71
[2021-12-12 08:28] LABS: BASO # 0.1 10^3/uL (0.0-0.2); BASO % 0.8 % (0.0-1.0); EOS # 0.2 10^3/uL (0.0-0.5); EOS % 1.9 % (0.0-3.0); HEMOGLOBIN 13.6 g/dl (13.5-17.5); LYMPH # 1.4 10^3/uL (1.5-5.0); LYMPH % 16.8 % (24.0-44.0); MEAN CORPUSCULAR HGB CONC 31.6 g/dl (32.0-36.5); MEAN CORPUSCULAR VOLUME 91.7 fl (80.0-96.0); MONO % 12.3 % (2.0-8.0); NEUTROPHILS # 5.6 10^3/uL (1.5-8.5); NEUTROPHILS % 67.8 % (36.0-66.0); PLATELET COUNT, AUTOMATED 464 10^3/uL (150-450); RED BLOOD COUNT 4.69 10^6/uL (4.30-6.10); WHITE BLOOD COUNT 8.3 10^3/uL (4.0-10.0)
[2021-12-12] MEDS: DIGOXIN 0.125 MG TAB PO SCH (08:38)
[2021-12-12] MEDS: OMEPRAZOLE 20MG CAP PO SCH (08:39)
[2021-12-12] MEDS: DICLOFENAC EPOLAMINE 1.3 % PATCH TOP SCH ×2 (08:39→21:12)
[2021-12-12] MEDS: FUROSEMIDE 40MG/4ML VIAL (J1940) IV SCH ×2 (08:39→17:06)
[2021-12-12] MEDS: HumaLOG INSULIN (NovoLOG) PER UNIT SC SCH ×4 (08:46→21:00)
[2021-12-12 08:55] LABS: BLOOD UREA NITROGEN 17 MG/DL (7-18); CALCIUM LEVEL 8.9 MG/DL (8.8-10.2); CARBON DIOXIDE LEVEL 32 MEQ/L (21-32); CHLORIDE LEVEL 100 MEQ/L (98-107); CREATININE FOR GFR 0.94 MG/DL (0.70-1.30); GLOMERULAR FILTRATION RATE > 60.0 (>42); GLUCOSE, FASTING 117 MG/DL (70-100); POTASSIUM SERUM 3.5 MEQ/L (3.5-5.1); SODIUM LEVEL 139 MEQ/L (136-145)
[2021-12-12 11:32] VITALS: BP 102/56
[2021-12-12 12:00] VITALS: BP 112/68
[2021-12-12] MEDS: cefTRIAXone SOD 2 GM in D5W MINI-BAG PLUS 50 ML IV SCH (13:03)
[2021-12-12] MEDS: oxyCODONE 5MG TAB PO PRN ×2 (14:07→23:12)
[2021-12-12 16:00] VITALS: BP 150/86
[2021-12-12] MEDS: KETOROLAC 30 MG/ML 1ML VIAL IV PRN (19:20)
[2021-12-12 19:50] VITALS: BP 106/56
[2021-12-12] MEDS: PRAVASTATIN 20 MG TAB PO SCH (21:12)
[2021-12-12] MEDS: LATANOPROST 0.005% OPHTH SOLN 2.5 ML OU SCH (23:07)
[2021-12-13] VITALS (9 sets, daily range): BP systolic 121–153; BP diastolic 58–99
[2021-12-13] MEDS: cefTRIAXone SOD 2 GM in D5W MINI-BAG PLUS 50 ML IV SCH ×3 (01:34→23:58)
[2021-12-13 05:36] LABS: BASO # 0.1 10^3/uL (0.0-0.2); BASO % 1.1 % (0.0-1.0); EOS # 0.3 10^3/uL (0.0-0.5); EOS % 4.3 % (0.0-3.0); HEMOGLOBIN 13.5 g/dl (13.5-17.5); LYMPH # 1.6 10^3/uL (1.5-5.0); LYMPH % 21.9 % (24.0-44.0); MEAN CORPUSCULAR HGB CONC 32.1 g/dl (32.0-36.5); MEAN CORPUSCULAR VOLUME 90.3 fl (80.0-96.0); MONO % 12.9 % (2.0-8.0); NEUTROPHILS # 4.4 10^3/uL (1.5-8.5); NEUTROPHILS % 59.7 % (36.0-66.0); PLATELET COUNT, AUTOMATED 496 10^3/uL (150-450); RED BLOOD COUNT 4.65 10^6/uL (4.30-6.10); WHITE BLOOD COUNT 7.4 10^3/uL (4.0-10.0)
[2021-12-13] MEDS: METOPROLOL TART 50 MG TAB PO SCH ×4 (05:52→23:58)
[2021-12-13] MEDS: LEVOTHYROXINE 50MCG TABLET (0.05MG) PO SCH (05:52)
[2021-12-13 06:06] LABS: BLOOD UREA NITROGEN 18 MG/DL (7-18); CALCIUM LEVEL 8.5 MG/DL (8.8-10.2); CARBON DIOXIDE LEVEL 29 MEQ/L (21-32); CHLORIDE LEVEL 98 MEQ/L (98-107); CREATININE FOR GFR 0.97 MG/DL (0.70-1.30); GLOMERULAR FILTRATION RATE > 60.0 (>42); GLUCOSE, FASTING 101 MG/DL (70-100); POTASSIUM SERUM 4.8 MEQ/L (3.5-5.1); SODIUM LEVEL 138 MEQ/L (136-145)
[2021-12-13] MEDS: SYMBICORT 160/4.5MCG INHALER 6GM INH SCH ×2 (07:22→20:43)
[2021-12-13] MEDS: TIOTROPIUM INHALER/CAPSULE (SPIRIVA) INH SCH (07:22)
[2021-12-13] MEDS: HumaLOG INSULIN (NovoLOG) PER UNIT SC SCH ×4 (07:43→21:00)
[2021-12-13] MEDS: FUROSEMIDE 40MG/4ML VIAL (J1940) IV SCH ×2 (08:47→16:31)
[2021-12-13] MEDS: DIGOXIN 0.125 MG TAB PO SCH (08:48)
[2021-12-13] MEDS: OMEPRAZOLE 20MG CAP PO SCH (08:48)
[2021-12-13] MEDS: DICLOFENAC EPOLAMINE 1.3 % PATCH TOP SCH ×2 (08:48→21:05)
[2021-12-13] MEDS: oxyCODONE 5MG TAB PO PRN ×2 (11:58→21:07)
[2021-12-13] MEDS: BACLOFEN 10 MG TAB PO SCH ×2 (16:31→21:05)
[2021-12-13] MEDS: KETOROLAC 30 MG/ML 1ML VIAL IV PRN (16:39)
[2021-12-13] MEDS ORDERED: METOPROLOL TART 25 MG TABLET PO ONE (20:45)
[2021-12-13] MEDS: LATANOPROST 0.005% OPHTH SOLN 2.5 ML OU SCH (21:05)
[2021-12-13] MEDS: PRAVASTATIN 20 MG TAB PO SCH (21:05)
[2021-12-14] MEDS: KETOROLAC 30 MG/ML 1ML VIAL IV PRN ×2 (00:24→13:16)
[2021-12-14] MEDS: oxyCODONE 5MG TAB PO PRN ×2 (04:35→22:11)
[2021-12-14 06:17] VITALS: BP 121/79
[2021-12-14 06:17] LABS: BASO # 0.1 10^3/uL (0.0-0.2); BASO % 1.3 % (0.0-1.0); EOS # 0.4 10^3/uL (0.0-0.5); EOS % 6.6 % (0.0-3.0); HEMATOCRIT 42.3 % (42.0-52.0); HEMOGLOBIN 13.4 g/dl (13.5-17.5); LYMPH # 1.3 10^3/uL (1.5-5.0); LYMPH % 20.2 % (24.0-44.0); MEAN CORPUSCULAR HEMOGLOBIN 28.8 pg (27.0-33.0); MEAN CORPUSCULAR HGB CONC 31.7 g/dl (32.0-36.5); MEAN CORPUSCULAR VOLUME 90.8 fl (80.0-96.0); MONO # 0.9 10^3/uL (0.0-0.8); MONO % 13.8 % (2.0-8.0); NEUTROPHILS # 3.6 10^3/uL (1.5-8.5); NEUTROPHILS % 57.9 % (36.0-66.0); PLATELET COUNT, AUTOMATED 451 10^3/uL (150-450); RED BLOOD COUNT 4.66 10^6/uL (4.30-6.10); WHITE BLOOD COUNT 6.2 10^3/uL (4.0-10.0)
[2021-12-14] MEDS: LEVOTHYROXINE 50MCG TABLET (0.05MG) PO SCH (06:25)
[2021-12-14] MEDS: METOPROLOL TART 50 MG TAB PO SCH ×3 (06:25→17:44)
[2021-12-14 06:54] LABS: BLOOD UREA NITROGEN 20 MG/DL (7-18); CALCIUM LEVEL 8.9 MG/DL (8.8-10.2); CARBON DIOXIDE LEVEL 33 MEQ/L (21-32); CHLORIDE LEVEL 96 MEQ/L (98-107); CREATININE FOR GFR 0.81 MG/DL (0.70-1.30); GLOMERULAR FILTRATION RATE > 60.0 (>42); GLUCOSE, FASTING 116 MG/DL (70-100); POTASSIUM SERUM 3.4 MEQ/L (3.5-5.1); SODIUM LEVEL 136 MEQ/L (136-145)
[2021-12-14] MEDS: TIOTROPIUM INHALER/CAPSULE (SPIRIVA) INH SCH (07:28)
[2021-12-14] MEDS: SYMBICORT 160/4.5MCG INHALER 6GM INH SCH ×2 (07:28→19:03)
[2021-12-14] MEDS: HumaLOG INSULIN (NovoLOG) PER UNIT SC SCH ×4 (07:30→21:00)
[2021-12-14] MEDS: DICLOFENAC EPOLAMINE 1.3 % PATCH TOP SCH ×2 (08:06→22:10)
[2021-12-14] MEDS: OMEPRAZOLE 20MG CAP PO SCH (09:08)
[2021-12-14] MEDS: BACLOFEN 10 MG TAB PO SCH ×3 (09:08→22:09)
[2021-12-14] MEDS: FUROSEMIDE 40MG/4ML VIAL (J1940) IV SCH ×2 (09:08→16:28)
[2021-12-14] MEDS: DIGOXIN 0.125 MG TAB PO SCH (09:08)
[2021-12-14] MEDS: NYSTATIN 100,000 UNITS/GM TOPICAL PWD 15 GM TOP PRN ×2 (11:05→22:10)
[2021-12-14] MEDS: cefTRIAXone SOD 2 GM in D5W MINI-BAG PLUS 50 ML IV SCH (12:33)
[2021-12-14 14:00] VITALS: BP 120/81
[2021-12-14 20:29] VITALS: BP 123/81
[2021-12-14 21:45] VITALS: BP 125/79
[2021-12-14 21:49] LABS: APPEARANCE, CSF CLEAR (CLEAR); COLOR, CSF COLORLESS (COLORLESS); CSF TUBE# CELL CNT TUBE 1
[2021-12-14 21:51] LABS: APPEARANCE, CSF CLEAR (CLEAR); COLOR, CSF COLORLESS (COLORLESS); CSF TUBE# CELL CNT TUBE 4
[2021-12-14 22:02] LABS: GLUCOSE CSF 85 MG/DL (40-75); TOTAL PROTEIN,CSF 28 MG/DL (15-45)
[2021-12-14 22:09] LABS: CSF TUBE# GLU TUBE 3; CSF TUBE# TP TUBE 3
[2021-12-14] MEDS: LATANOPROST 0.005% OPHTH SOLN 2.5 ML OU SCH (22:10)
[2021-12-14] MEDS: PRAVASTATIN 20 MG TAB PO SCH (22:10)
[2021-12-14] MEDS ORDERED: ALBUTEROL SULFATE 2.5 MG/0.5 ML INH NEB SOLN NEB PRN (22:40)
[2021-12-15] MEDS: cefTRIAXone SOD 2 GM in D5W MINI-BAG PLUS 50 ML IV SCH ×2
[2021-12-15] MEDS: KETOROLAC 30 MG/ML 1ML VIAL IV PRN ×2 (00:20→21:42)
[2021-12-15] MEDS: LEVOTHYROXINE 50MCG TABLET (0.05MG) PO SCH (05:51)
[2021-12-15] MEDS: METOPROLOL TART 50 MG TAB PO SCH ×4 (05:52→17:32)
[2021-12-15 06:00] VITALS: BP 122/71
[2021-12-15 06:51] LABS: BASO # 0.1 10^3/uL (0.0-0.2); BASO % 1.2 % (0.0-1.0); EOS # 0.5 10^3/uL (0.0-0.5); HEMATOCRIT 43.3 % (42.0-52.0); HEMOGLOBIN 13.6 g/dl (13.5-17.5); LYMPH # 1.4 10^3/uL (1.5-5.0); LYMPH % 21.2 % (24.0-44.0); MEAN CORPUSCULAR HEMOGLOBIN 28.5 pg (27.0-33.0); MEAN CORPUSCULAR HGB CONC 31.4 g/dl (32.0-36.5); MEAN CORPUSCULAR VOLUME 90.8 fl (80.0-96.0); MONO # 0.8 10^3/uL (0.0-0.8); MONO % 12.9 % (2.0-8.0); NEUTROPHILS # 3.6 10^3/uL (1.5-8.5); NEUTROPHILS % 56.4 % (36.0-66.0); PLATELET COUNT, AUTOMATED 440 10^3/uL (150-450); RED BLOOD COUNT 4.77 10^6/uL (4.30-6.10); WHITE BLOOD COUNT 6.4 10^3/uL (4.0-10.0)
[2021-12-15 07:15] LABS: BLOOD UREA NITROGEN 19 MG/DL (7-18); CALCIUM LEVEL 9.2 MG/DL (8.8-10.2); CARBON DIOXIDE LEVEL 34 MEQ/L (21-32); CHLORIDE LEVEL 96 MEQ/L (98-107); GLOMERULAR FILTRATION RATE > 60.0 (>42); GLUCOSE, FASTING 125 MG/DL (70-100); POTASSIUM SERUM 3.4 MEQ/L (3.5-5.1); SODIUM LEVEL 137 MEQ/L (136-145)
[2021-12-15] MEDS: HumaLOG INSULIN (NovoLOG) PER UNIT SC SCH ×4 (07:23→21:00)
[2021-12-15] MEDS ORDERED: LevoFLOXacin 750 MG TABLET PO ONE (07:45)
[2021-12-15] MEDS: SYMBICORT 160/4.5MCG INHALER 6GM INH SCH ×2 (08:29→19:59)
[2021-12-15] MEDS: TIOTROPIUM INHALER/CAPSULE (SPIRIVA) INH SCH (08:30)
[2021-12-15] MEDS: OMEPRAZOLE 20MG CAP PO SCH (08:39)
[2021-12-15] MEDS: BACLOFEN 10 MG TAB PO SCH ×3 (08:39→21:40)
[2021-12-15] MEDS: TORSEMIDE 20 MG TAB PO SCH (08:39)
[2021-12-15] MEDS: DIGOXIN 0.125 MG TAB PO SCH (08:39)
[2021-12-15] MEDS: DICLOFENAC EPOLAMINE 1.3 % PATCH TOP SCH ×2 (08:39→21:41)
[2021-12-15 14:00] VITALS: BP 117/73
[2021-12-15 15:15] LABS: CLOSTRIDIUM DIFFICILE PCR NEGATIVE (NEGATIVE)
[2021-12-15] MEDS: oxyCODONE 5MG TAB PO PRN (16:07)
[2021-12-15 16:11] LABS: INR 1.16; PROTHROMBIN TIME 15.2 SECONDS (12.7-14.5)
[2021-12-15 16:12] LABS: PARTIAL THROMBOPLASTIN TIME 31.3 SECONDS (25.9-37.0)
[2021-12-15] MEDS: PRAVASTATIN 20 MG TAB PO SCH (21:40)
[2021-12-15] MEDS: APIXABAN 5 MG TAB (ELIQUIS) PO SCH (21:40)
[2021-12-15] MEDS: LATANOPROST 0.005% OPHTH SOLN 2.5 ML OU SCH (21:41)
[2021-12-15] MEDS: NYSTATIN 100,000 UNITS/GM TOPICAL PWD 15 GM TOP PRN (21:43)
[2021-12-15 22:00] VITALS: BP 137/84
[2021-12-16] MEDS: METOPROLOL TART 50 MG TAB PO SCH ×4 (00:22→18:28)
[2021-12-16 06:00] VITALS: BP 136/76
[2021-12-16] MEDS ORDERED: LevoFLOXacin 750 MG TABLET PO SCH (06:00)
[2021-12-16] MEDS: SYMBICORT 160/4.5MCG INHALER 6GM INH SCH ×2 (06:00→20:42)
[2021-12-16] MEDS: TIOTROPIUM INHALER/CAPSULE (SPIRIVA) INH SCH (06:00)
[2021-12-16 06:14] LABS: BASO # 0.1 10^3/uL (0.0-0.2); EOS # 0.5 10^3/uL (0.0-0.5); EOS % 6.4 % (0.0-3.0); HEMATOCRIT 42.1 % (42.0-52.0); HEMOGLOBIN 13.3 g/dl (13.5-17.5); LYMPH # 1.4 10^3/uL (1.5-5.0); LYMPH % 19.8 % (24.0-44.0); MEAN CORPUSCULAR HEMOGLOBIN 28.4 pg (27.0-33.0); MEAN CORPUSCULAR HGB CONC 31.6 g/dl (32.0-36.5); MEAN CORPUSCULAR VOLUME 89.8 fl (80.0-96.0); MONO # 0.9 10^3/uL (0.0-0.8); NEUTROPHILS # 4.4 10^3/uL (1.5-8.5); NEUTROPHILS % 60.7 % (36.0-66.0); PLATELET COUNT, AUTOMATED 460 10^3/uL (150-450); RED BLOOD COUNT 4.69 10^6/uL (4.30-6.10); WHITE BLOOD COUNT 7.2 10^3/uL (4.0-10.0)
[2021-12-16] MEDS: LEVOTHYROXINE 50MCG TABLET (0.05MG) PO SCH (06:37)
[2021-12-16 06:45] LABS: BLOOD UREA NITROGEN 17 MG/DL (7-18); CALCIUM LEVEL 8.8 MG/DL (8.8-10.2); CARBON DIOXIDE LEVEL 36 MEQ/L (21-32); CHLORIDE LEVEL 94 MEQ/L (98-107); CREATININE FOR GFR 0.99 MG/DL (0.70-1.30); GLOMERULAR FILTRATION RATE > 60.0 (>42); GLUCOSE, FASTING 134 MG/DL (70-100); POTASSIUM SERUM 3.3 MEQ/L (3.5-5.1); SODIUM LEVEL 138 MEQ/L (136-145)
[2021-12-16 08:30] VITALS: BP 102/60
[2021-12-16] MEDS: HumaLOG INSULIN (NovoLOG) PER UNIT SC SCH ×4 (08:54→21:20)
[2021-12-16] MEDS: BACLOFEN 10 MG TAB PO SCH ×3 (08:54→20:42)
[2021-12-16] MEDS: DIGOXIN 0.125 MG TAB PO SCH (08:55)
[2021-12-16] MEDS: OMEPRAZOLE 20MG CAP PO SCH (08:55)
[2021-12-16] MEDS: TORSEMIDE 20 MG TAB PO SCH (08:55)
[2021-12-16] MEDS: APIXABAN 5 MG TAB (ELIQUIS) PO SCH ×2 (08:55→20:42)
[2021-12-16] MEDS: DICLOFENAC EPOLAMINE 1.3 % PATCH TOP SCH ×2 (08:56→20:42)
[2021-12-16] MEDS: POTASSIUM CHLORIDE 10MEQ SR TABLET PO SCH ×2 (10:41→20:42)
[2021-12-16 12:11] VITALS: BP 124/70
[2021-12-16 14:01] VITALS: BP 123/67
[2021-12-16 16:08] LABS: BODY FLUID CULTURE Not indicated. (.); LEGIONELLA ANTIGEN URINE Negative (Negative); ORGANISM ID Not indicated. (.); SPECIMEN SOURCE Urine (.); URINE STREP PNEUMONIAE ANTIGEN Negative (Negative)
[2021-12-16] MEDS: PRAVASTATIN 20 MG TAB PO SCH (20:42)
[2021-12-16] MEDS: LATANOPROST 0.005% OPHTH SOLN 2.5 ML OU SCH (20:42)
[2021-12-17] MEDS: METOPROLOL TART 50 MG TAB PO SCH ×4 (00:32→18:12)
[2021-12-17 06:00] VITALS: BP 129/63
[2021-12-17 06:06] LABS: BASO # 0.1 10^3/uL (0.0-0.2); EOS # 0.5 10^3/uL (0.0-0.5); EOS % 5.9 % (0.0-3.0); HEMATOCRIT 42.2 % (42.0-52.0); HEMOGLOBIN 13.4 g/dl (13.5-17.5); LYMPH # 1.6 10^3/uL (1.5-5.0); LYMPH % 20.6 % (24.0-44.0); MEAN CORPUSCULAR HEMOGLOBIN 28.2 pg (27.0-33.0); MEAN CORPUSCULAR HGB CONC 31.8 g/dl (32.0-36.5); MEAN CORPUSCULAR VOLUME 88.8 fl (80.0-96.0); MONO # 0.9 10^3/uL (0.0-0.8); MONO % 11.4 % (2.0-8.0); NEUTROPHILS # 4.8 10^3/uL (1.5-8.5); NEUTROPHILS % 60.8 % (36.0-66.0); PLATELET COUNT, AUTOMATED 476 10^3/uL (150-450); RED BLOOD COUNT 4.75 10^6/uL (4.30-6.10); WHITE BLOOD COUNT 7.8 10^3/uL (4.0-10.0)
[2021-12-17] MEDS: LEVOTHYROXINE 50MCG TABLET (0.05MG) PO SCH (06:06)
[2021-12-17 06:22] LABS: BLOOD UREA NITROGEN 15 MG/DL (7-18); CALCIUM LEVEL 8.9 MG/DL (8.8-10.2); CARBON DIOXIDE LEVEL 34 MEQ/L (21-32); CHLORIDE LEVEL 95 MEQ/L (98-107); CREATININE FOR GFR 1.03 MG/DL (0.70-1.30); GLOMERULAR FILTRATION RATE > 60.0 (>42); GLUCOSE, FASTING 136 MG/DL (70-100); POTASSIUM SERUM 3.7 MEQ/L (3.5-5.1); SODIUM LEVEL 138 MEQ/L (136-145)
[2021-12-17] MEDS: SYMBICORT 160/4.5MCG INHALER 6GM INH SCH ×2 (07:26→20:49)
[2021-12-17] MEDS: TIOTROPIUM INHALER/CAPSULE (SPIRIVA) INH SCH (07:26)
[2021-12-17] MEDS: HumaLOG INSULIN (NovoLOG) PER UNIT SC SCH ×4 (07:30→20:43)
[2021-12-17 08:00] VITALS: BP 122/73
[2021-12-17] MEDS: BACLOFEN 10 MG TAB PO SCH ×3 (09:12→20:50)
[2021-12-17] MEDS: DIGOXIN 0.125 MG TAB PO SCH (09:12)
[2021-12-17] MEDS: POTASSIUM CHLORIDE 10MEQ SR TABLET PO SCH ×2 (09:13→20:49)
[2021-12-17] MEDS: OMEPRAZOLE 20MG CAP PO SCH (09:14)
[2021-12-17] MEDS: TORSEMIDE 20 MG TAB PO SCH (09:14)
[2021-12-17] MEDS: APIXABAN 5 MG TAB (ELIQUIS) PO SCH ×2 (09:15→20:49)
[2021-12-17] MEDS: DICLOFENAC EPOLAMINE 1.3 % PATCH TOP SCH ×2 (09:16→20:49)
[2021-12-17] MEDS: LATANOPROST 0.005% OPHTH SOLN 2.5 ML OU SCH (20:49)
[2021-12-17] MEDS: PRAVASTATIN 20 MG TAB PO SCH (20:49)
[2021-12-17] MEDS: ACETAMINOPHEN TAB 650MG DOSE (2X325MG) PO PRN (22:32)
[2021-12-18] MEDS: METOPROLOL TART 50 MG TAB PO SCH ×3 (00:38→12:00)
[2021-12-18] MEDS: LEVOTHYROXINE 50MCG TABLET (0.05MG) PO SCH (05:26)
[2021-12-18 06:00] VITALS: BP 105/62
[2021-12-18] MEDS: TIOTROPIUM INHALER/CAPSULE (SPIRIVA) INH SCH (07:23)
[2021-12-18] MEDS: SYMBICORT 160/4.5MCG INHALER 6GM INH SCH (07:23)
[2021-12-18] MEDS: HumaLOG INSULIN (NovoLOG) PER UNIT SC SCH ×3 (07:30→12:36)
[2021-12-18] MEDS: OMEPRAZOLE 20MG CAP PO SCH (08:20)
[2021-12-18] MEDS: TORSEMIDE 20 MG TAB PO SCH (08:20)
[2021-12-18] MEDS: DIGOXIN 0.125 MG TAB PO SCH (08:21)
[2021-12-18] MEDS: POTASSIUM CHLORIDE 10MEQ SR TABLET PO SCH (08:21)
[2021-12-18] MEDS: BACLOFEN 10 MG TAB PO SCH (08:21)
[2021-12-18] MEDS: APIXABAN 5 MG TAB (ELIQUIS) PO SCH (08:22)
[2021-12-18] MEDS: DICLOFENAC EPOLAMINE 1.3 % PATCH TOP SCH (08:27)
[2021-12-18] MEDS ORDERED: TRAM50TA2 PO (10:26)
[2021-12-18] MEDS ORDERED: DIGO0.123 PO (10:26)
[2021-12-18] MEDS ORDERED: LOPR1TAB6 PO (10:26)
[2021-12-18] MEDS ORDERED: POTA-136 PO (10:26)
[2021-12-18] MEDS ORDERED: TORS20TA2 PO (10:26)
[2021-12-18] MEDS ORDERED: BACL10TA2 PO (10:26)
[2021-12-18] MEDS ORDERED: DICL1PAT6 TOP (10:26)
[2021-12-18] MEDS: ACETAMINOPHEN TAB 650MG DOSE (2X325MG) PO PRN (10:28)
[2021-12-18 12:00] VITALS: BP 104/70
== END 2021-12-18 13:13 | DRG 551 ==
LOC: M ED 04:05 → M ED INP 08:22 → ENRESERV 14:44 → M PCU 15:37 → M MSPAV 12-13 18:57
PROVIDERS: ADMIT Internal Medicine Nephrology; ATTEND Family Medicine
PROC: 009U3ZX Drainage of Spinal Canal, Percutaneous Approach, Diagnostic (ICD-10-PCS; principal; 2021-12-13)
DX: M50.30 Other cervical disc degeneration, unspecified cervical region (principal); J18.9 Pneumonia, unspecified organism; Z68.43 Body mass index [BMI] 50.0-59.9, adult; J96.11 Chronic respiratory failure with hypoxia; I50.32 Chronic diastolic (congestive) heart failure; I48.92 Unspecified atrial flutter; R51.9 Headache, unspecified; I48.0 Paroxysmal atrial fibrillation; E66.01 Morbid (severe) obesity due to excess calories; J44.9 Chronic obstructive pulmonary disease, unspecified; I11.0 Hypertensive heart disease with heart failure; K21.9 Gastro-esophageal reflux disease without esophagitis; E11.9 Type 2 diabetes mellitus without complications; E03.9 Hypothyroidism, unspecified; R19.7 Diarrhea, unspecified; G47.33 Obstructive sleep apnea (adult) (pediatric); Z79.01 Long term (current) use of anticoagulants; Z79.899 Other long term (current) drug therapy; Z88.0 Allergy status to penicillin; Z88.8 Allergy status to other drugs, medicaments and biological substances; Z87.891 Personal history of nicotine dependence; M43.02 Spondylolysis, cervical region

== ENCOUNTER → 2022-02-13 | Outpatient (REF) | payer MEDICARE, MEDICAID ==
[~2022-02-13] MED LIST changes: -ACET1TAB16; +ACET300T48; +ACET300T48 PO; +BACL10TA2 PO; +DICL1PAT6 TOP; +DIGO0.123 PO; +FLON1SPR; +INCR1INH INH; +LOPR1TAB6 PO; +LOPR1TAB7 PO; +METF-838 PO; +POTA-136 PO; +SENN-23 PO; +TRAM50TA2 PO
[2022-02-13 12:26] LABS: BLOOD UREA NITROGEN 13 MG/DL (7-18); CALCIUM LEVEL 9.8 MG/DL (8.8-10.2); CARBON DIOXIDE LEVEL 28 MEQ/L (21-32); CHLORIDE LEVEL 99 MEQ/L (98-107); DIGOXIN LEVEL 0.6 NG/ML (0.5-2.0); GLOMERULAR FILTRATION RATE > 60.0 (>42); GLUCOSE, FASTING 150 MG/DL (70-100); SODIUM LEVEL 139 MEQ/L (136-145)
== END ==
LOC: M LABDRAWC 11:01
PROVIDERS: ATTEND Nurse Practitioner Family
DX: I48.91 Unspecified atrial fibrillation (principal)

== ENCOUNTER → 2022-07-29 | Outpatient (REF) | payer MEDICARE, MEDICAID ==
[2022-07-29 17:52] LABS: HEMATOCRIT 45.8 % (42.0-52.0); HEMOGLOBIN 15.1 g/dl (13.5-17.5); MEAN CORPUSCULAR HEMOGLOBIN 30.5 pg (27.0-33.0); MEAN CORPUSCULAR VOLUME 92.5 fl (80.0-96.0); PLATELET COUNT, AUTOMATED 426 10^3/uL (150-450); RED BLOOD COUNT 4.95 10^6/uL (4.30-6.10); WHITE BLOOD COUNT 6.8 10^3/uL (4.0-10.0)
[2022-07-29 18:05] LABS: ALBUMIN 3.3 GM/DL (3.2-5.2); BILIRUBIN,TOTAL 0.5 MG/DL (0.2-1.0); CALCIUM LEVEL 9.4 MG/DL (8.8-10.2); CREATININE FOR GFR 1.26 MG/DL (0.70-1.30); FREE T4 1.27 NG/DL (0.76-1.46); GLOMERULAR FILTRATION RATE 59.1 (>42); POTASSIUM SERUM 3.9 MEQ/L (3.5-5.1); THYROID STIMULATING HORMONE 1.27 uIU/ML (0.358-3.740); TOTAL PROTEIN 7.5 GM/DL (6.4-8.2)
[2022-07-29 18:10] LABS: HEMOGLOBIN A1c 8.3 %
== END ==
LOC: M SFHCCLAY 12:09
PROVIDERS: ATTEND Family Medicine
DX: I10 Essential (primary) hypertension (principal); E11.9 Type 2 diabetes mellitus without complications; E66.2 Morbid (severe) obesity with alveolar hypoventilation

== ENCOUNTER → 2024-01-08 | Outpatient (REF) | payer MEDICARE, MEDICAID | LOC: M SFHCCLAY 09:51 | PROVIDERS: ATTEND Family Medicine | DX: B34.9 Viral infection, unspecified (principal); J02.9 Acute pharyngitis, unspecified; R06.82 Tachypnea, not elsewhere classified ==

== ENCOUNTER → 2024-01-13 | Outpatient (CLI) | payer MEDICARE, MEDICAID | LOC: M CLY 14:17 | PROVIDERS: ATTEND Physician Assistant | DX: R91.8 Other nonspecific abnormal finding of lung field (principal) ==

== ENCOUNTER → 2024-02-17 | Outpatient (REF) | payer MEDICARE, MEDICAID ==
[2024-02-17 13:20] LABS: THYROID STIMULATING HORMONE 0.492 uIU/ML (0.55-4.78)
[2024-02-17 13:21] LABS: ALBUMIN 2.8 G/DL (3.2-5.2); ALKALINE PHOSPHATASE 80 U/L (46-116); ALT/SGPT 12 U/L (7.0-40); AST/SGOT 14 U/L (<34); BILIRUBIN,TOTAL 0.5 MG/DL (0.3-1.2); BLOOD UREA NITROGEN 15 MG/DL (9-23); CARBON DIOXIDE LEVEL 39 MMOL/L (20-31); CHLORIDE LEVEL 99 MMOL/L (98-107); CHOLESTEROL LEVEL 167 MG/DL (<200); CHOLESTEROL RISK RATIO 4.01 (<5); CREATININE FOR GFR 1.19 MG/DL (0.70-1.30); FREE T4 1.37 NG/DL (0.89-1.76); GLOMERULAR FILTRATION RATE > 60.0 (>42); GLUCOSE, FASTING 112 MG/DL (74-106); HDL CHOLESTEROL 41.6 MG/DL (>40); NON-HDL-C 125.4 MG/DL; POTASSIUM SERUM 4.1 MMOL/L (3.5-5.1); SODIUM LEVEL 141 MMOL/L (136-145); TOTAL PROTEIN 7.1 G/DL (5.7-8.2); TRIGLYCERIDES LEVEL 117 MG/DL (<150)
[2024-02-17 14:03] LABS: HEMOGLOBIN A1c 6.2 % (4.0-6.0)
== END ==
LOC: M SFHCCLAY 07:58
PROVIDERS: ATTEND Family Medicine
DX: I10 Essential (primary) hypertension (principal); E66.2 Morbid (severe) obesity with alveolar hypoventilation; E11.9 Type 2 diabetes mellitus without complications; J45.30 Mild persistent asthma, uncomplicated; E03.9 Hypothyroidism, unspecified; M25.531 Pain in right wrist

== ENCOUNTER → 2024-02-17 | Outpatient (CLI) | payer MEDICARE, MEDICAID | LOC: M CLY 15:41 | PROVIDERS: ATTEND Family Medicine | DX: R05.3 Chronic cough (principal) ==

== ENCOUNTER → 2024-04-20 | Outpatient (CLI) | payer MEDICARE, MEDICAID | LOC: M SLEEP 20:00 | PROVIDERS: ATTEND Physician Assistant | DX: G47.33 Obstructive sleep apnea (adult) (pediatric) (principal) ==

== ENCOUNTER → 2024-08-29 | Outpatient (REF) | payer MEDICARE, MEDICAID ==
[2024-08-29 11:23] LABS: HEMATOCRIT 43.6 % (42.0-52.0); HEMOGLOBIN 13.6 g/dl (13.5-17.5); MEAN CORPUSCULAR HEMOGLOBIN 28.5 pg (27.0-33.0); MEAN CORPUSCULAR HGB CONC 31.2 g/dl (32.0-36.5); MEAN CORPUSCULAR VOLUME 91.2 fl (80.0-96.0); PLATELET COUNT, AUTOMATED 365 10^3/uL (150-450); RED BLOOD COUNT 4.78 10^6/uL (4.30-6.10)
[2024-08-29 11:43] LABS: ALKALINE PHOSPHATASE 81 U/L (40-129); ALT/SGPT 10 U/L (7.0-40); AST/SGOT 10 U/L (<34); BILIRUBIN,TOTAL 0.4 MG/DL (0.3-1.2); BLOOD UREA NITROGEN 24 MG/DL (9-23); CALCIUM LEVEL 9.6 MG/DL (8.3-10.6); CARBON DIOXIDE LEVEL 39 MMOL/L (20-31); CHLORIDE LEVEL 100 MMOL/L (98-107); CHOLESTEROL LEVEL 176 MG/DL (<200); CHOLESTEROL RISK RATIO 4.52 (<5); CREATININE FOR GFR 1.04 MG/DL (0.70-1.30); GLOMERULAR FILTRATION RATE > 60.0 (>42); GLUCOSE, FASTING 130 MG/DL (74-106); HDL CHOLESTEROL 38.9 MG/DL (>40); LDL CHOLESTEROL 113.1 MG/DL (<100); NON-HDL-C 137.1 MG/DL; POTASSIUM SERUM 4.6 MMOL/L (3.5-5.1); SODIUM LEVEL 140 MMOL/L (136-145); TOTAL PROTEIN 7.4 G/DL (5.7-8.2); TRIGLYCERIDES LEVEL 120 MG/DL (<150)
[2024-08-29 11:54] LABS: HEMOGLOBIN A1c 6.6 % (4.0-6.0)
[2024-08-31 11:51] LABS: DIGOXIN LEVEL < 0.1 NG/ML (0.8-2.0)
== END ==
LOC: M SFHCCLAY 07:50
PROVIDERS: ATTEND Family Medicine
DX: I10 Essential (primary) hypertension (principal); E11.9 Type 2 diabetes mellitus without complications; E66.2 Morbid (severe) obesity with alveolar hypoventilation; J45.30 Mild persistent asthma, uncomplicated; E03.9 Hypothyroidism, unspecified; M25.531 Pain in right wrist

== ENCOUNTER → 2024-08-30 | Outpatient (REF) | payer MEDICARE, MEDICAID | LOC: M SFHCCLAY 16:05 | PROVIDERS: ATTEND Family Medicine | DX: I50.20 Unspecified systolic (congestive) heart failure (principal) ==

== ENCOUNTER 2024-09-02 11:51 | Emergency (ER) | payer MEDICARE, MEDICAID ==
[2024-09-02 12:38] LABS: HEMATOCRIT 43.1 % (42.0-52.0); HEMOGLOBIN 13.5 g/dl (13.5-17.5); MEAN CORPUSCULAR HEMOGLOBIN 28.1 pg (27.0-33.0); MEAN CORPUSCULAR HGB CONC 31.3 g/dl (32.0-36.5); MEAN CORPUSCULAR VOLUME 89.8 fl (80.0-96.0); PLATELET COUNT, AUTOMATED 328 10^3/uL (150-450); WHITE BLOOD COUNT 6.7 10^3/uL (4.0-10.0)
[2024-09-02 12:52] LABS: INR 1.17; PROTHROMBIN TIME 15.2 SECONDS (12.5-14.5)
[2024-09-02 13:08] LABS: DIGOXIN LEVEL 0.2 NG/ML (0.8-2.0)
[2024-09-02 13:12] LABS: ALBUMIN 3.1 G/DL (3.2-5.2); ALKALINE PHOSPHATASE 82 U/L (40-129); ALT/SGPT 13 U/L (7.0-40); AST/SGOT 30 U/L (<34); BILIRUBIN,DIRECT < 0.1 MG/DL (<0.4); BILIRUBIN,TOTAL 0.4 MG/DL (0.3-1.2); BLOOD UREA NITROGEN 24 MG/DL (9-23); CALCIUM LEVEL 9.6 MG/DL (8.3-10.6); CARBON DIOXIDE LEVEL 36 MMOL/L (20-31); CHLORIDE LEVEL 96 MMOL/L (98-107); CREATININE FOR GFR 0.96 MG/DL (0.70-1.30); FREE T4 1.09 NG/DL (0.89-1.76); GLOMERULAR FILTRATION RATE > 60.0 (>42); GLUCOSE, FASTING 157 MG/DL (74-106); POTASSIUM SERUM 4.6 MMOL/L (3.5-5.1); SODIUM LEVEL 135 MMOL/L (136-145); THYROID STIMULATING HORMONE 2.108 uIU/ML (0.55-4.78)
[2024-09-02] MEDS: dilTIAZem 120MG **CD** CAPSULE PO ONE (14:50)
[2024-09-02] MEDS: METOPROLOL 5 MG/5 ML VIAL IV SCH (17:20)
[2024-09-02] MEDS: METOPROLOL TART 50 MG TAB PO ONE (17:20)
[2024-09-02 17:47] VITALS: BP 106/145
[2024-09-02] MEDS ORDERED: LOPR1TAB6 PO (18:47)
[2024-09-02] MEDS ORDERED: DILT240C47 PO (18:47)
[2024-09-02 20:25] VITALS: BP 121/82; TEMP 98.1; O2SAT 98
== END 2024-09-02 20:32 | disposition home or self-care (01) ==
LOC: M ED 11:51 → EDBD 11:51 → M ED 20:32
DX: I48.91 Unspecified atrial fibrillation (principal); I44.4 Left anterior fascicular block; E03.9 Hypothyroidism, unspecified; K21.9 Gastro-esophageal reflux disease without esophagitis; E78.5 Hyperlipidemia, unspecified; I10 Essential (primary) hypertension; J45.909 Unspecified asthma, uncomplicated; Z88.0 Allergy status to penicillin; Z88.8 Allergy status to other drugs, medicaments and biological substances; Z86.79 Personal history of other diseases of the circulatory system; Z79.01 Long term (current) use of anticoagulants; Z79.1 Long term (current) use of non-steroidal anti-inflammatories (NSAID); Z79.4 Long term (current) use of insulin; Z79.899 Other long term (current) drug therapy

== ENCOUNTER → 2024-12-09 | Outpatient (REF) | payer MEDICARE, MEDICAID ==
[~2024-12-09] MED LIST changes: +DILT240C47 PO; +METH-1387 PO; -METH10TA PO
[2024-12-09 18:59] LABS: BASO # 0.1 10^3/uL (0.0-0.2); BASO % 0.7 % (0.0-1.0); EOS # 0.2 10^3/uL (0.0-0.5); EOS % 2.1 % (0.0-3.0); HEMATOCRIT 42.6 % (42.0-52.0); HEMOGLOBIN 13.1 g/dl (13.5-17.5); LYMPH # 1.9 10^3/uL (1.5-5.0); LYMPH % 26.6 % (24.0-44.0); MEAN CORPUSCULAR HEMOGLOBIN 27.2 pg (27.0-33.0); MEAN CORPUSCULAR HGB CONC 30.8 g/dl (32.0-36.5); MEAN CORPUSCULAR VOLUME 88.6 fl (80.0-96.0); MONO # 0.7 10^3/uL (0.0-0.8); MONO % 9.6 % (2.0-8.0); NEUTROPHILS # 4.4 10^3/uL (1.5-8.5); NEUTROPHILS % 60.9 % (36.0-66.0); PLATELET COUNT, AUTOMATED 412 10^3/uL (150-450); RED BLOOD COUNT 4.81 10^6/uL (4.30-6.10); WHITE BLOOD COUNT 7.2 10^3/uL (4.0-10.0)
[2024-12-09 19:28] LABS: THYROID STIMULATING HORMONE 2.124 uIU/ML (0.55-4.78)
[2024-12-09 19:29] LABS: FREE T4 1.08 NG/DL (0.89-1.76)
[2024-12-09 19:30] LABS: ALKALINE PHOSPHATASE 86 U/L (40-129); ALT/SGPT 12 U/L (7.0-40); AST/SGOT 13 U/L (<34); BILIRUBIN,TOTAL 0.3 MG/DL (0.3-1.2); BLOOD UREA NITROGEN 33 MG/DL (9-23); CALCIUM LEVEL 8.9 MG/DL (8.3-10.6); CARBON DIOXIDE LEVEL 34 MMOL/L (20-31); CHLORIDE LEVEL 98 MMOL/L (98-107); CHOLESTEROL LEVEL 184 MG/DL (<200); CREATININE FOR GFR 1.11 MG/DL (0.70-1.30); DIGOXIN LEVEL < 0.1 NG/ML (0.8-2.0); GLOMERULAR FILTRATION RATE > 60.0 (>42); GLUCOSE, FASTING 125 MG/DL (74-106); HDL CHOLESTEROL 41.8 MG/DL (>40); LDL CHOLESTEROL 111.8 MG/DL (<100); NON-HDL-C 142.2 MG/DL; POTASSIUM SERUM 5.1 MMOL/L (3.5-5.1); SODIUM LEVEL 138 MMOL/L (136-145); TOTAL PROTEIN 7.5 G/DL (5.7-8.2); TRIGLYCERIDES LEVEL 152 MG/DL (<150)
== END ==
LOC: M SFHCCLAY 10:05
PROVIDERS: ATTEND Nurse Practitioner Family
DX: E11.9 Type 2 diabetes mellitus without complications (principal); E78.00 Pure hypercholesterolemia, unspecified; E66.01 Morbid (severe) obesity due to excess calories; I11.0 Hypertensive heart disease with heart failure; R26.2 Difficulty in walking, not elsewhere classified; G47.33 Obstructive sleep apnea (adult) (pediatric)

== ENCOUNTER → 2024-12-13 | Outpatient (CLI) | payer MEDICARE, MEDICAID | LOC: M CLY 10:34 | PROVIDERS: ATTEND Physician Assistant | DX: S99.921A Unspecified injury of right foot, initial encounter (principal); M79.89 Other specified soft tissue disorders; S99.201A Unspecified physeal fracture of phalanx of right toe, initial encounter for closed fracture; X58.XXXA Exposure to other specified factors, initial encounter; Y92.9 Unspecified place or not applicable; Y93.9 Activity, unspecified; Y99.9 Unspecified external cause status ==

== ENCOUNTER → 2025-03-17 | Outpatient (REF) | payer MEDICARE, MEDICAID ==
[2025-03-17 13:08] LABS: BILIRUBIN,DIRECT 0.2 MG/DL (<0.4); BILIRUBIN,TOTAL 0.4 MG/DL (0.3-1.2); CHOLESTEROL RISK RATIO 4.36 (<5); HDL CHOLESTEROL 34.1 MG/DL (>40); LDL CHOLESTEROL 87.1 MG/DL (<100); NON-HDL-C 114.9 MG/DL; TOTAL PROTEIN 7.3 G/DL (5.7-8.2)
== END ==
LOC: M LABDRAWC 07:59
PROVIDERS: ATTEND Nurse Practitioner Acute Care
DX: E78.5 Hyperlipidemia, unspecified (principal)

== ENCOUNTER → 2025-06-20 | Outpatient (REF) | payer MEDICARE, MEDICAID ==
[~2025-06-20] MED LIST changes: -AMIO200T49 PO; +AMIO200T54 PO; -PRAV20TA2 PO; +PRAV20TA78 PO
[2025-06-20 19:06] LABS: ALT/SGPT 12.0 U/L (7.0-40); AST/SGOT 15.0 U/L (<34); CALCIUM LEVEL 8.9 MG/DL (8.3-10.6); CARBON DIOXIDE LEVEL 37.0 MMOL/L (20-31); CHLORIDE LEVEL 98.0 MMOL/L (98-107); CREATININE FOR GFR 1.11 MG/DL (0.70-1.30); GLOMERULAR FILTRATION RATE 67.1 (>35); POTASSIUM SERUM 4.4 MMOL/L (3.5-5.1); SODIUM LEVEL 140.0 MMOL/L (136-145)
== END ==
LOC: M SFHCCLAY 10:49
PROVIDERS: ATTEND Physician Assistant
DX: R60.0 Localized edema (principal)

== ENCOUNTER → 2025-08-10 | Outpatient (REF) | payer MEDICARE, MEDICAID ==
[2025-08-10 18:33] LABS: ESTIMATED AVERAGE GLUCOSE 160.0 MG/DL (60-110)
[2025-08-10 18:34] LABS: ALT/SGPT 12 U/L (7.0-40); AST/SGOT 14 U/L (<34); CALCIUM LEVEL 9.0 MG/DL (8.3-10.6); CARBON DIOXIDE LEVEL 35 MMOL/L (20-31); CHLORIDE LEVEL 99 MMOL/L (98-107); CHOLESTEROL LEVEL 169 MG/DL (<200); CHOLESTEROL RISK RATIO 4.02 (<5); CREATININE FOR GFR 1.09 MG/DL (0.70-1.30); DIGOXIN LEVEL < 0.1 NG/ML (0.8-2.0); GLOMERULAR FILTRATION RATE 68.6 (>35); LDL CHOLESTEROL 72.4 MG/DL (<100); NON-HDL-C 127.0 MG/DL; POTASSIUM SERUM 3.8 MMOL/L (3.5-5.1); SODIUM LEVEL 140 MMOL/L (136-145); TRIGLYCERIDES LEVEL 273 MG/DL (<150)
[2025-08-10 18:36] LABS: FREE T4 1.11 NG/DL (0.89-1.76)
== END ==
LOC: M SFHCCLAY 14:04
PROVIDERS: ATTEND Nurse Practitioner Family
DX: Z00.00 Encounter for general adult medical examination without abnormal findings (principal); E78.00 Pure hypercholesterolemia, unspecified; E11.9 Type 2 diabetes mellitus without complications; E66.01 Morbid (severe) obesity due to excess calories; I50.20 Unspecified systolic (congestive) heart failure; I11.0 Hypertensive heart disease with heart failure; R26.2 Difficulty in walking, not elsewhere classified; G47.33 Obstructive sleep apnea (adult) (pediatric); E03.9 Hypothyroidism, unspecified